=== PATIENT | male | born 1970 | race Caucasian/White ===

== ENCOUNTER 2017-03-11 18:28 | Inpatient (IN) | payer OTHER ==
[2017-03-11 20:30] VITALS: BMI 25.1
--- NOTE | 2017-03-11 23:44 | HP ---
CIWA Score - CIWA Score Nausea/Vomitin-Mild Nausea/No Vomiting Muscle Tremors: 4-Moderate,w/Arms Extend Anxiety: 4-Mod. Anxious/Guarded Agitation: 4-Moderately Restless Paroxysmal Sweats: 1-Minimal Palms Moist Orientation: 0-Oriented Tacttile Disturbances: 0-None Auditory Disturbances: 0-None Visual Disturbances: 0-None Headache: 1-Very Mild CIWA-Ar Total Score: 15 Admission ROS BHS - HPI Chief Complaint: WITHDRAWAL SX Allergies/Adverse Reactions: Allergies Allergy/AdvReac Type Severity Reaction Status Date / Time No Known Allergies Allergy Verified 03/11/17 21:38 History of Present Illness: 46 YEARS OLD MALE WITH LONG HISTORY OF ALCOHOL NICOTINE DEPENDENCE HAS BIPOLAR II IS ADMITTE TO DETOX Exam Limitations: No Limitations - Ebola screening Have you traveled outside of the country in the last 21 days: No Have you had contact with anyone from an Ebola affected area: No Have you been sick,other than usual withdrawal symptoms: No Do you have a fever: No - Review of Systems Constitutional: Chills, Weight Stable EENT: reports: Blurred Vision (CONTACT LENS) Respiratory: reports: No Symptoms reported Cardiac: reports: No Symptoms Reported GI: reports: Nausea, Abdominal cramping : reports: No Symptoms Reported Musculoskeletal: reports: Joint Pain (LEFT ANKLE) Integumentary: reports: No Symptoms Reported Neuro: reports: Seizure (2016 ALCOHOL WITHDRAWAL SX), Tremors Endocrine: reports: No Symptoms Reported Hematology: reports: No Symptoms Reported Psychiatric: reports: Judgement Intact, Orientated x3, Anxious, Depressed Other Systems: Reviewed and Negative Patient History - Patient Medical History Hx Anemia: No Hx Asthma: No Hx Chronic Obstructive Pulmonary Disease (COPD): No Hx Cancer: No Hx Cardiac Disorders: No Hx Congestive Heart Failure: No Hx Hypertension: No Hx Hypercholesterolemia: No Hx Pacemaker: No HX Cerebrovascular Accident: No Hx Seizures: Yes (ETOH R/T X 4 2015) Hx Dementia: No Hx Diabetes: No Hx Gastrointestinal Disorders: No Hx Liver Disease: No Hx Genitourinary Disorders: No Hx Sexually Transmitted Disorders: No Hx Renal Disease (ESRD): No Hx Thyroid Disease: No Hx Human Immunodeficiency Virus (HIV): No Hx Hepatitis C: No Hx Depression: No Hx Suicide Attempt: No Hx Bipolar Disorder: Yes Hx Schizophrenia: No - Patient Surgical History Past Surgical History: Yes Hx Neurologic Surgery: No Hx Cataract Extraction: No Hx Cardiac Surgery: No Hx Lung Surgery: No Hx Breast Surgery: No Hx Breast Biopsy: No Hx Abdominal Surgery: No Hx Appendectomy: No Hx Cholecystectomy: No Hx Genitourinary Surgery: No Hx Orthopedic Surgery: Yes (LT.ANKLE 2009) Anesthesia Reaction: No - PPD History Previous Implant?: No Documented Results: Negative w/o proof Implanted On Prior [facility] Admission?: No PPD to be Administered?: Yes - Smoking Cessation Smoking history: Current every day smoker Have you smoked in the past 12 months: Yes Aproximately how many cigarettes per day: 20 Cigars Per Day: 0 Hx Chewing Tobacco Use: No Initiated information on smoking cessation: Yes 'Breaking Loose' booklet given: 03/11/17 - Substance & Tx. History Hx Alcohol Use: Yes Hx Substance Use: Yes Substance Use Type: Alcohol, Cocaine Hx Substance Use Treatment: Yes (2013) - Substances Abused Alcohol Route: Oral Frequency: Daily Amount used: 1 CASE OF [id number] Age of first use: 13 Date of Last Use: 03/11/17 Cocaine Route: Smoking Frequency: Daily Amount used: $200 Age of first use: 17 Date of Last Use: 03/10/17 Alprazolam (Xanax) Route: Oral Frequency: 1-2 times per week Amount used: 8 MG PILLS /WEEK Age of first use: 36 Date of Last Use: 03/09/17 Family Disease History - Family Disease History Family History: Unremarkable Admission Physical Exam S - Vital Signs Vital Signs: Vital Signs - 24 hr 03/11/17 20:28 Temperature 97.7 F Pulse Rate 96 H Respiratory 18 Rate Blood Pressure 111/73 - Physical General Appearance: Yes: Nourished, Appropriately Dressed, Alcohol on Breath, Tremorous, Irritable, Sweating, Anxious HEENTM: Yes: Hearing grossly Normal, Normocephalic, Normal Voice Respiratory: Yes: Chest Non-Tender, No Respiratory Distress, No Accessory Muscle Use, Hyperresonant Neck: Yes: Supple, Trachea in good position Breast: Yes: Breasts Symetrical Cardiology: Yes: Regular Rhythm, S1, S2, Tachycardia Abdominal: Yes: Normal Bowel Sounds, Non Tender, Soft Genitourinary: Yes: Within Normal Limits Back: Yes: Normal Inspection Musculoskeletal: Yes: full range of Motion, Gait Steady, Muscle Pain (LEFT ANKLE ) Extremities: Yes: Non-Tender, Tremors, Swelling (LEFT ANKLE) Neurological: Yes: Fully Oriented, Alert, Motor Strength 5/5, Normal Response, Depressed Affect Integumentary: Yes: Warm Lymphatic: Yes: Within Normal Limits - Diagnostic (1) Alcohol dependence with uncomplicated withdrawal Current Visit: Yes Status: Acute (2) Nicotine dependence Current Visit: Yes Status: Acute Qualifiers: Nicotine product type: cigarettes Substance use status: in withdrawal Qualified Code(s): F17.213 - Nicotine dependence, cigarettes, with withdrawal (3) Right ankle swelling Current Visit: Yes Status: Acute Comment: WALKING X 3 DAYS + DRINKING ALCOHOL HEAVY ELEVATION OF THE LEFT LEG (4) Bipolar II disorder Current Visit: Yes Status: Suspected Cleared for Admission [facility] - Detox or Rehab [facility] Level of Care: Medically Managed Detox Regimen/Protocol: Librium [facility] Breath Alcohol Content Breath Alcohol Content: 0.048 Urine Drug Screen - Results Drug Screen Negative: No Urine Drug Screen Results: JOSE ALFREDO-Cocaine, BAR-Barbiturates, BZO-Benzodiazepines
[2017-03-11] MEDS ORDERED: ACETAMINOPHEN 325 MG TABLET (FP) PO PRN (23:50)
[2017-03-11] MEDS ORDERED: MAGNESIUM HYDROX 2400MG/30ML ORAL SUSPENSION 30 ML CUP PO PRN (23:50)
[2017-03-11] MEDS ORDERED: chlordiazePOXIDE HCL 25 MG CAPSULE PO PRN (23:50)
[2017-03-11] MEDS ORDERED: P-EPHED 60MG/TRIPROLIDI 2.5MG TABLET PO PRN (23:50)
[2017-03-11] MEDS ORDERED: NICOTINE POLACRILEX 4 MG GUM BC PRN (23:50)
[2017-03-11] MEDS ORDERED: MENTHOL/PHENOL 1 EACH UD MM PRN (23:50)
[2017-03-11] MEDS ORDERED: MAGNESIUM CITRATE 300 ML BOTTLE PO PRN (23:50)
[2017-03-11] MEDS ORDERED: IBUPROFEN 400 MG TABLET (FP) PO PRN (23:50)
[2017-03-11] MEDS ORDERED: guaiFENesin/D-METHORPHAN HB 10 ML UNIT-DOSE CUPS PO PRN (23:50)
[2017-03-11] MEDS ORDERED: MAG HYDROX/AL HYDROX/SIMETH 30 ML UNIT-DOSE CUP PO PRN (23:50)
[2017-03-11] MEDS ORDERED: LOPERAMIDE HCL 2 MG CAPSULE PO PRN (23:50)
[2017-03-12] MEDS: chlordiazePOXIDE HCL 25 MG CAPSULE PO SCH ×5 (01:49→22:07)
[2017-03-12 10:04] LABS: HEMATOCRIT 40.4 % (35.4-49); MCH 30.6 pg (25.7-33.7); MCHC 32.3 g/dl (32.0-35.9); MEAN CELL VOLUME 94.8 fl (80-96); MEAN PLT VOLUME 7.8 fl (7.5-11.1); PLATELET COUNT 312 K/MM3 (134-434); RBC 4.26 M/mm3 (4.00-5.60); RDW 14.7 % (11.9-15.9); WHITE BLOOD COUNT 9.2 K/mm3 (4.0-10.0)
[2017-03-12] MEDS: NICOTINE 21 MG/24 HOURS TOPICAL PATCH TD SCH (10:14)
[2017-03-12] MEDS: PRENATAL VITAMINS W/ FOLIC ACID TABLET (FP) PO SCH (10:14)
[2017-03-12 10:15] LABS: CHLORIDE 106 mmol/L (98-107); POTASSIUM 4.2 mmol/L (3.5-5.1); SODIUM 142 mmol/L (136-145)
[2017-03-12 10:33] LABS: ALBUMIN 3.2 g/dl (3.4-5.0); ALK PHOS 63 U/L (45-117); ANION GAP 7 (8-16); BILIRUBIN,TOTAL 0.7 mg/dL (0.2-1.0); BLOOD UREA NITROGEN 26 mg/dL (7-18); CALCIUM 8.5 mg/dL (8.5-10.1); CO2 29 mmol/L (21-32); CREATININE 1.1 mg/dL (0.7-1.3); GLUCOSE,RANDOM 72 mg/dL (74-106); SGOT/AST 20 U/L (15-37); SGPT/ALT 30 U/L (12-78); TOT PROT 6.3 g/dl (6.4-8.2)
--- NOTE | 2017-03-12 10:48 | CONSULT ---
[facility] Psychiatric Consult - Data Date of interview: 03/12/17 Admission source: [facility] Identifying data: First admission to [facility] for this 46 y/o male seeking detox treatment on for alcohol and cocaine dependence.Patient is single without children,domiciled,unemployed and supported on SSI benefits. Substance Abuse History: Confirmed by patient in this interview. See current [facility] report for details : Smoking history: Current every day smoker. Have you smoked in the past 12 months: Yes. Aproximately how many cigarettes per day: 20. Cigars Per Day: 0. Hx Chewing Tobacco Use: No. Initiated information on smoking cessation: Yes. 'Breaking Loose' booklet given: 03/11/17. - Substance & Tx. History. Hx Alcohol Use: Yes. Hx Substance Use: Yes. Substance Use Type : Alcohol, Cocaine. Hx Substance Use Treatment: Yes (2013). - Substances Abused. Alcohol. Route: Oral. Frequency: Daily. Amount used: 1 CASE OF [id number]. Age of first use: 13. Date of Last Use: 03/11/17. Cocaine. Route: Smoking. Frequency: Daily. Amount used: $200. Age of first use: 17. Date of Last Use: 03/10/17. Alprazolam (Xanax). Route: Oral. Frequency: 1- 2 times per week. Amount used: 8 MG PILLS /WEEK. Age of first use: 36. Date of Last Use: 03/09/17 Medical History: Patient endorses good general health.Noted history of orthosurgery (hardware in place in left ankle). Psychiatric History: Patient denies. Physical/Sexual Abuse/Trauma History: Patient denies. Additional Comment: Urine Drug Screen Results: JOSE ALFREDO-Cocaine, BAR-Barbiturates, BZO-Benzodiazepines.Noted. Mental Status Exam - Mental Status Exam Alert and Oriented to: Time, Place, Person Cognitive Function: Good Patient Appearance: Well Groomed Mood: Hopeful, Euthymic Affect: Appropriate, Normal Range Patient Behavior: Fatigued, Appropriate, Cooperative Speech Pattern: Clear Voice Loudness: Normal Thought Process: Intact, Goal Oriented Thought Disorder: Not Present Hallucinations: Denies Suicidal Ideation: Denies Homicidal Ideation: Denies Insight/Judgement: Poor Sleep: Poorly, Difficulty falling asleep Appetite: Good Muscle strength/Tone: Normal Gait/Station: Other (walks with a limp) Psychiatric Findings - Problem List ([place] 1, 2,3) (1) Alcohol dependence with uncomplicated withdrawal Current Visit: Yes Status: Acute (2) Cocaine dependence Current Visit: Yes Status: Chronic (3) Benzodiazepine abuse Current Visit: Yes Status: Acute (4) Nicotine dependence Current Visit: Yes Status: Chronic Qualifiers: Nicotine product type: cigarettes Substance use status: in withdrawal Qualified Code(s): F17.213 - Nicotine dependence, cigarettes, with withdrawal (5) Insomnia Current Visit: Yes Status: Acute - Initial Treatment Plan Initial Treatment Plan: Psychoeducation.Detoxification.Sleep hygiene.Ambien 10 mg po hs prn.Side effects/benefits discussed with the patient.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
[2017-03-12] MEDS ORDERED: FLU VACCINE QUAD 60 MCG/0.5 ML (MDV 17-18) IM ONE (12:00)
--- NOTE | 2017-03-12 12:02 | PN ---
[facility] CIWA - CIWA Score Nausea/Vomitin-Mild Nausea/No Vomiting Muscle Tremors: 3 Anxiety: 4-Mod. Anxious/Guarded Agitation: 4-Moderately Restless Paroxysmal Sweats: 3 Orientation: 0-Oriented Tacttile Disturbances: 1-Very Mild Itch/Numbness Auditory Disturbances: 0-None Visual Disturbances: 0-None Headache: 0-None Present CIWA-Ar Total Score: 16 BHS Progress Note (SOAP) Subjective: Nausea, sweating, interrupted sleep Objective: 03/12/17 12:00 Last Vital Signs Temp Pulse Resp BP Pulse Ox 97.1 F L 83 18 102/69 03/12/17 09:20 03/12/17 09:20 03/12/17 09:20 03/12/17 09:20 Laboratory Tests 03/12/17 03/12/17 03/12/17 07:00 07:00 07:00 WBC 9.2 RBC 4.26 Hgb 13.0 Hct 40.4 MCV 94.8 MCH 30.6 MCHC 32.3 RDW 14.7 Plt Count 312 MPV 7.8 Sodium 142 Potassium 4.2 Chloride 106 Carbon Dioxide 29 Anion Gap 7 L BUN 26 H Creatinine 1.1 Creat Clearance w eGFR > 60 Random Glucose 72 L Calcium 8.5 Total Bilirubin 0.7 AST 20 ALT 30 Alkaline Phosphatase 63 Total Protein 6.3 L Albumin 3.2 L RPR Titer Nonreactive Labs noted: bun 26 Assessment: 03/12/17 12:01 Withdrawal symptoms Noted with azotemia Plan: Continue detox Azotemia: encouraged to drink lots of water (at least 8 cups daily)
--- NOTE | 2017-03-12 13:57 | EKG ---
Test Reason : Blood Pressure : / mmHG Vent. Rate : 090 BPM Atrial Rate : 090 BPM P-R Int : 158 ms QRS Dur : 082 ms QT Int : 378 ms P-R-T Axes : 078 041 050 degrees QTc Int : 462 ms POOR DATA QUALITY, INTERPRETATION MAY BE ADVERSELY AFFECTED NORMAL SINUS RHYTHM EARLY REPOLARIZATION NO PREVIOUS ECGS AVAILABLE Confirmed by LAITH NAVA MD ([id number]) on 03/12/2017 1:57:03 PM Referred By: Confirmed By:LAITH NAVA MD
[2017-03-12] MEDS: THIAMINE HCL 100 MG TABLET (FP) PO SCH (22:07)
[2017-03-12] MEDS: ZOLPIDEM TARTRATE 10 MG TABLET (PARK CARE ONLY) PO PRN (22:07)
[2017-03-13 03:01] LABS: URINE APPEARANCE CLEAR; URINE BILIRUBIN NEGATIVE (NEGATIVE); URINE BLOOD NEGATIVE (NEGATIVE); URINE COLOR STRAW; URINE GLUCOSE (UA) NEGATIVE (NEGATIVE); URINE KETONE NEGATIVE (NEGATIVE); URINE LEUK ESTERASE NEGATIVE (NEGATIVE); URINE NITRITE NEGATIVE (NEGATIVE); URINE PROTEIN NEGATIVE (NEGATIVE); URINE UROBILINOGEN NEGATIVE mg/dL (0.2-1.0)
[2017-03-13] MEDS: chlordiazePOXIDE HCL 25 MG CAPSULE PO SCH ×3 (05:05→16:41)
[2017-03-13] MEDS: PRENATAL VITAMINS W/ FOLIC ACID TABLET (FP) PO SCH (10:04)
[2017-03-13] MEDS: NICOTINE 21 MG/24 HOURS TOPICAL PATCH TD SCH (10:04)
--- NOTE | 2017-03-13 13:52 | PN ---
[facility] CIWA - CIWA Score Nausea/Vomitin-No Nausea/No Vomiting Muscle Tremors: 4-Moderate,w/Arms Extend Anxiety: 3 Agitation: 2 Paroxysmal Sweats: No Perspiration Orientation: 0-Oriented Tacttile Disturbances: 3-Moderate Itch/Numb/Burn Auditory Disturbances: 2-Mild Harshness/Frighten Visual Disturbances: 0-None Headache: 3-Moderate CIWA-Ar Total Score: 17 S Progress Note (SOAP) Subjective: Interrupted Sleep, H/A, Stomach Cramping, Tremors. Objective: PT. A & O X 3, OBSERVED AMBULATING ON UNIT. NO ACUTE DISTRESS. 03/13/17 13:50 Vital Signs Temperature 97.9 F 03/13/17 13:14 Pulse Rate 80 03/13/17 13:14 Respiratory Rate 18 03/13/17 13:14 Blood Pressure 107/69 03/13/17 13:14 O2 Sat by Pulse Oximetry (%) Laboratory Tests 03/12/17 03/12/17 03/12/17 07:00 07:00 07:00 WBC 9.2 RBC 4.26 Hgb 13.0 Hct 40.4 MCV 94.8 MCH 30.6 MCHC 32.3 RDW 14.7 Plt Count 312 MPV 7.8 Sodium 142 Potassium 4.2 Chloride 106 Carbon Dioxide 29 Anion Gap 7 L BUN 26 H Creatinine 1.1 Creat Clearance w eGFR > 60 Random Glucose 72 L Calcium 8.5 Total Bilirubin 0.7 AST 20 ALT 30 Alkaline Phosphatase 63 Total Protein 6.3 L Albumin 3.2 L Urine Color Urine Appearance Urine pH Ur Specific [place] Urine Protein Urine Glucose (UA) Urine Ketones Urine Blood Urine Nitrite Urine Bilirubin Urine Urobilinogen Ur Leukocyte Esterase RPR Titer Nonreactive 03/12/17 20:45 WBC RBC Hgb Hct MCV MCH MCHC RDW Plt Count MPV Sodium Potassium Chloride Carbon Dioxide Anion Gap BUN Creatinine Creat Clearance w eGFR Random Glucose Calcium Total Bilirubin AST ALT Alkaline Phosphatase Total Protein Albumin Urine Color Straw Urine Appearance Clear Urine pH 8.0 Ur Specific [place] 1.012 Urine Protein Negative Urine Glucose (UA) Negative Urine Ketones Negative Urine Blood Negative Urine Nitrite Negative Urine Bilirubin Negative Urine Urobilinogen Negative Ur Leukocyte Esterase Negative RPR Titer LABS NOTED. Assessment: 03/13/17 13:50 WITHDRAWAL SYMPTOMS. Plan: CONTINUE DETOX. REPEAT BUN ON 03/14/2017 FOR ELEVATED ADMISSION LEVEL. INCREASE DAILY PO FLUID INTAKE.
[2017-03-13] MEDS: chlordiazePOXIDE 5 MG CAPSULE PO SCH (21:59)
[2017-03-13] MEDS: THIAMINE HCL 100 MG TABLET (FP) PO SCH (21:59)
[2017-03-13] MEDS: ZOLPIDEM TARTRATE 10 MG TABLET (PARK CARE ONLY) PO PRN (21:59)
[2017-03-14] MEDS: chlordiazePOXIDE 5 MG CAPSULE PO SCH ×3 (05:19→16:36)
[2017-03-14] MEDS: NICOTINE 21 MG/24 HOURS TOPICAL PATCH TD SCH (10:05)
[2017-03-14] MEDS: PRENATAL VITAMINS W/ FOLIC ACID TABLET (FP) PO SCH (10:05)
--- NOTE | 2017-03-14 12:10 | PN ---
BHS Progress Note (SOAP) Subjective: Tremor, feeling depressed and reports h/o bipolar and wants to speak with a psychiatrist, chills, interrupted sleep Objective: 03/14/17 12:07 Last Vital Signs Temp Pulse Resp BP Pulse Ox 97.5 F L 88 20 108/66 03/14/17 09:32 03/14/17 09:32 03/14/17 09:32 03/14/17 09:32 Laboratory Tests 03/12/17 03/12/17 03/12/17 07:00 07:00 07:00 WBC 9.2 RBC 4.26 Hgb 13.0 Hct 40.4 MCV 94.8 MCH 30.6 MCHC 32.3 RDW 14.7 Plt Count 312 MPV 7.8 Sodium 142 Potassium 4.2 Chloride 106 Carbon Dioxide 29 Anion Gap 7 L BUN 26 H Creatinine 1.1 Creat Clearance w eGFR > 60 Random Glucose 72 L Calcium 8.5 Total Bilirubin 0.7 AST 20 ALT 30 Alkaline Phosphatase 63 Total Protein 6.3 L Albumin 3.2 L Urine Color Urine Appearance Urine pH Ur Specific [place] Urine Protein Urine Glucose (UA) Urine Ketones Urine Blood Urine Nitrite Urine Bilirubin Urine Urobilinogen Ur Leukocyte Esterase RPR Titer Nonreactive 03/12/17 03/14/17 20:45 07:40 WBC RBC Hgb Hct MCV MCH MCHC RDW Plt Count MPV Sodium Potassium Chloride Carbon Dioxide Anion Gap BUN 16 D Creatinine Creat Clearance w eGFR Random Glucose Calcium Total Bilirubin AST ALT Alkaline Phosphatase Total Protein Albumin Urine Color Straw Urine Appearance Clear Urine pH 8.0 Ur Specific [place] 1.012 Urine Protein Negative Urine Glucose (UA) Negative Urine Ketones Negative Urine Blood Negative Urine Nitrite Negative Urine Bilirubin Negative Urine Urobilinogen Negative Ur Leukocyte Esterase Negative RPR Titer Labs noted: bun 26 Assessment: 03/14/17 12:09 Withdrawal symptoms Noted with azotemia Plan: Continue detox C/O feeling depressed, h/o bipolar disorder: psychiatry consult Azotemia: encouraged to drink lots of water
[2017-03-14] MEDS: ZOLPIDEM TARTRATE 10 MG TABLET (PARK CARE ONLY) PO PRN (22:00)
[2017-03-14] MEDS: THIAMINE HCL 100 MG TABLET (FP) PO SCH (22:00)
[2017-03-14] MEDS: chlordiazePOXIDE HCL 10 MG CAPSULE PO SCH (22:00)
[2017-03-15] MEDS: chlordiazePOXIDE HCL 10 MG CAPSULE PO SCH ×3 (05:03→17:35)
[2017-03-15] MEDS: PRENATAL VITAMINS W/ FOLIC ACID TABLET (FP) PO SCH (10:09)
[2017-03-15] MEDS: NICOTINE 21 MG/24 HOURS TOPICAL PATCH TD SCH (10:09)
--- NOTE | 2017-03-15 11:48 | PN ---
S Progress Note (SOAP) Subjective: Stomach ache, sweating; patient is for discharge home tomorrow and is requesting inpatient rehab here at [facility] Objective: 03/15/17 11:46 Last Vital Signs Temp Pulse Resp BP Pulse Ox 96 F L 90 20 113/74 03/15/17 09:10 03/15/17 09:10 03/15/17 09:10 03/15/17 09:10 Laboratory Tests 03/12/17 03/12/17 03/12/17 07:00 07:00 07:00 WBC 9.2 RBC 4.26 Hgb 13.0 Hct 40.4 MCV 94.8 MCH 30.6 MCHC 32.3 RDW 14.7 Plt Count 312 MPV 7.8 Sodium 142 Potassium 4.2 Chloride 106 Carbon Dioxide 29 Anion Gap 7 L BUN 26 H Creatinine 1.1 Creat Clearance w eGFR > 60 Random Glucose 72 L Calcium 8.5 Total Bilirubin 0.7 AST 20 ALT 30 Alkaline Phosphatase 63 Total Protein 6.3 L Albumin 3.2 L Urine Color Urine Appearance Urine pH Ur Specific [place] Urine Protein Urine Glucose (UA) Urine Ketones Urine Blood Urine Nitrite Urine Bilirubin Urine Urobilinogen Ur Leukocyte Esterase RPR Titer Nonreactive 03/12/17 03/14/17 20:45 07:40 WBC RBC Hgb Hct MCV MCH MCHC RDW Plt Count MPV Sodium Potassium Chloride Carbon Dioxide Anion Gap BUN 16 D Creatinine Creat Clearance w eGFR Random Glucose Calcium Total Bilirubin AST ALT Alkaline Phosphatase Total Protein Albumin Urine Color Straw Urine Appearance Clear Urine pH 8.0 Ur Specific [place] 1.012 Urine Protein Negative Urine Glucose (UA) Negative Urine Ketones Negative Urine Blood Negative Urine Nitrite Negative Urine Bilirubin Negative Urine Urobilinogen Negative Ur Leukocyte Esterase Negative RPR Titer Labs noted Assessment: 03/15/17 11:47 Withdrawal symptoms Plan: Continue detox
[2017-03-15] MEDS: ZOLPIDEM TARTRATE 10 MG TABLET (PARK CARE ONLY) PO PRN (21:43)
[2017-03-15] MEDS: THIAMINE HCL 100 MG TABLET (FP) PO SCH (21:43)
[2017-03-16 06:21] VITALS: BP 100/67; PULSE 73; TEMP 97.7
--- NOTE | 2017-03-25 16:09 | DS ---
[facility] Detox Discharge Summary Admission Date: 03/11/17 Discharge Date: 04/16/17 - History Present History: Alcohol Dependence, Cocaine Dependence Additional Comments: dehydrated on admission, malnutirtion noted Pertinent Past History: anxiety, depression, insomnia, nicotine dependence, benzodiazepin abuse - Physical Exam Results Vital Signs: Vital Signs Temperature 97.7 F 03/16/17 06:21 Pulse Rate 73 03/16/17 06:21 Respiratory Rate 18 03/16/17 06:21 Blood Pressure 100/67 03/16/17 06:21 O2 Sat by Pulse Oximetry (%) Laboratory Tests 03/12/17 03/12/17 03/12/17 07:00 07:00 07:00 WBC 9.2 RBC 4.26 Hgb 13.0 Hct 40.4 MCV 94.8 MCH 30.6 MCHC 32.3 RDW 14.7 Plt Count 312 MPV 7.8 Sodium 142 Potassium 4.2 Chloride 106 Carbon Dioxide 29 Anion Gap 7 L BUN 26 H Creatinine 1.1 Creat Clearance w eGFR > 60 Random Glucose 72 L Calcium 8.5 Total Bilirubin 0.7 AST 20 ALT 30 Alkaline Phosphatase 63 Total Protein 6.3 L Albumin 3.2 L Urine Color Urine Appearance Urine pH Ur Specific [place] Urine Protein Urine Glucose (UA) Urine Ketones Urine Blood Urine Nitrite Urine Bilirubin Urine Urobilinogen Ur Leukocyte Esterase RPR Titer Nonreactive 03/12/17 03/14/17 20:45 07:40 WBC RBC Hgb Hct MCV MCH MCHC RDW Plt Count MPV Sodium Potassium Chloride Carbon Dioxide Anion Gap BUN 16 D Creatinine Creat Clearance w eGFR Random Glucose Calcium Total Bilirubin AST ALT Alkaline Phosphatase Total Protein Albumin Urine Color Straw Urine Appearance Clear Urine pH 8.0 Ur Specific [place] 1.012 Urine Protein Negative Urine Glucose (UA) Negative Urine Ketones Negative Urine Blood Negative Urine Nitrite Negative Urine Bilirubin Negative Urine Urobilinogen Negative Ur Leukocyte Esterase Negative RPR Titer dehydration and hypoalbuminemia on admission Pertinent Admission Physical Exam Findings: withdrawal sx - Treatment Hospital Course: Detox Protocol Followed, Detoxed Safely, Responded well, Discharged Condition Good, Rehab Referral Accepted Patient has Accepted a Rehab Referral to: Yes - Medication Discharge Medications: Ambulatory Orders NK [No Known Home Medication] 03/11/17 - Diagnosis (1) Alcohol dependence with uncomplicated withdrawal Status: Acute (2) Benzodiazepine abuse Status: Acute (3) Bipolar II disorder Status: Chronic (4) Cocaine dependence Status: Chronic (5) Nicotine dependence Status: Chronic Qualifiers: Nicotine product type: cigarettes Substance use status: in withdrawal Qualified Code(s): F17.213 - Nicotine dependence, cigarettes, with withdrawal
== END 2017-03-16 09:38 | disposition home or self-care (01) | DRG 897 ==
LOC: YASAS 18:28 → Y3N 21:54
PROVIDERS: ADMIT Internal Medicine; ATTEND Internal Medicine
PROC: HZ2ZZZZ Detoxification Services for Substance Abuse Treatment (ICD-10-PCS; principal; 2017-03-11)
DX: F10.230 Alcohol dependence with withdrawal, uncomplicated (principal); F14.20 Cocaine dependence, uncomplicated; F31.81 Bipolar II disorder; G40.509 Epileptic seizures related to external causes, not intractable, without status epilepticus; F13.10 Sedative, hypnotic or anxiolytic abuse, uncomplicated; G47.00 Insomnia, unspecified; M25.471 Effusion, right ankle
CPT/HCPCS: 36415; 80053; 81003; 84520; 85027; 86593; 90688; 93005; 93010; G0008

== ENCOUNTER 2017-12-08 12:54 | Inpatient (IN) | payer OTHER ==
[2017-12-08 14:30] VITALS: BMI 23.7
--- NOTE | 2017-12-08 15:29 | HP ---
CIWA Score - CIWA Score Nausea/Vomitin Muscle Tremors: 2 Anxiety: 2 Agitation: 2 Paroxysmal Sweats: 3 Orientation: 0-Oriented Tacttile Disturbances: 2-Mild Itch/Numbness/Burn Auditory Disturbances: 0-None Visual Disturbances: 0-None Headache: 0-None Present CIWA-Ar Total Score: 14 Admission ROS BHS - HPI Chief Complaint: I need help to stop using drugs and alcohol. Allergies/Adverse Reactions: Allergies Allergy/AdvReac Type Severity Reaction Status Date / Time No Known Allergies Allergy Verified 12/08/17 15:09 History of Present Illness: 47 y/o m pt with a 24 yr h/o alcohol and cocaine dep. seeking detox. Exam Limitations: No Limitations - Ebola screening Have you traveled outside of the country in the last 21 days: No Have you had contact with anyone from an Ebola affected area: No Have you been sick,other than usual withdrawal symptoms: No Do you have a fever: No - Review of Systems Constitutional: Chills, Malaise, Night Sweats EENT: reports: Other (wears contact lenses) Respiratory: reports: Shortness of Breath Cardiac: reports: No Symptoms Reported GI: reports: Indigestion : reports: Frequency Musculoskeletal: reports: Muscle Pain Integumentary: reports: Sweating Neuro: reports: Headache, Tremors Hematology: reports: No Symptoms Reported Psychiatric: reports: Anxious, Depressed Other Systems: Reviewed and Negative Patient History - Patient Medical History Hx Anemia: No Hx Asthma: No Hx Chronic Obstructive Pulmonary Disease (COPD): No Hx Cancer: No Hx Cardiac Disorders: No Hx Congestive Heart Failure: No Hx Hypertension: No Hx Hypercholesterolemia: No Hx Pacemaker: No HX Cerebrovascular Accident: No Hx Seizures: Yes (ETOH R/T X 4 2015) Hx Dementia: No Hx Diabetes: No Hx Gastrointestinal Disorders: No Hx Liver Disease: No Hx Genitourinary Disorders: No Hx Sexually Transmitted Disorders: No Hx Renal Disease (ESRD): No Hx Thyroid Disease: No Hx Human Immunodeficiency Virus (HIV): No Hx Hepatitis C: No Hx Depression: No Hx Suicide Attempt: No Hx Bipolar Disorder: Yes Hx Schizophrenia: No - Patient Surgical History Past Surgical History: Yes Hx Neurologic Surgery: No Hx Cataract Extraction: No Hx Cardiac Surgery: No Hx Lung Surgery: No Hx Breast Surgery: No Hx Breast Biopsy: No Hx Abdominal Surgery: No Hx Appendectomy: No Hx Cholecystectomy: No Hx Genitourinary Surgery: No Hx Section: No Hx Orthopedic Surgery: Yes (LT.ANKLE 2009) Anesthesia Reaction: No - PPD History Previous Implant?: Yes Date: 03/14/17 PPD to be Administered?: No - Reproductive History Patient is a Female of Child Bearing Age (11 -55 yrs old): No - Smoking Cessation Smoking history: Current every day smoker Have you smoked in the past 12 months: Yes Aproximately how many cigarettes per day: 20 Cigars Per Day: 0 Hx Chewing Tobacco Use: No Initiated information on smoking cessation: Yes 'Breaking Loose' booklet given: 12/08/17 - Substance & Tx. History Hx Alcohol Use: Yes Hx Substance Use: Yes Substance Use Type: Alcohol, Cocaine Hx Substance Use Treatment: Yes - Substances Abused alcohol Route: Oral Frequency: Daily Age of first use: 14 Date of Last Use: 12/08/17 Cocaine Route: Smoking Frequency: Daily Amount used: 2 gms/d Age of first use: 17 Date of Last Use: 12/07/17 Family Disease History - Family Disease History Family History: Denies Admission Physical Exam [facility] - Vital Signs Vital Signs: Vital Signs - 24 hr 12/08/17 14:27 Temperature 97.4 F L Pulse Rate 85 Respiratory 18 Rate Blood Pressure 136/80 47 y/o m pt wn/wd in nad ambulating and cooperative with exam. - Physical General Appearance: Yes: Disheveled, Tremorous, Sweating HEENTM: Yes: EOMI, Hearing grossly Normal, Normocephalic, Normal Voice, REYNA, Muffled/Hoarse Voice Respiratory: Yes: Within Normal Limits, Chest Non-Tender, Lungs Clear, Normal Breath Sounds, No Respiratory Distress Neck: Yes: Supple, Trachea in good position Breast: Yes: Within Normal Limits Cardiology: Yes: Regular Rhythm, Regular Rate, S1, S2 Abdominal: Yes: Normal Bowel Sounds, Flat, Soft, Increased Bowel Sounds Genitourinary: Yes: Frequency Back: Yes: Decreased Range of Motion Musculoskeletal: Yes: Back pain, Muscle Pain Extremities: Yes: Tremors (mild) Neurological: Yes: bending frame operator II-XII NML intact, Fully Oriented, Alert, Motor Strength 5/5 Integumentary: Yes: Moist Lymphatic: Yes: Within Normal Limits - Diagnostic (1) Alcohol dependence with uncomplicated withdrawal Current Visit: Yes Status: Chronic (2) Bipolar II disorder Current Visit: Yes Status: Chronic (3) Cocaine dependence Current Visit: No Status: Chronic (4) Nicotine dependence Current Visit: Yes Status: Chronic Qualifiers: Nicotine product type: cigarettes Substance use status: in withdrawal Qualified Code(s): F17.213 - Nicotine dependence, cigarettes, with withdrawal Cleared for Admission [facility] - Detox or Rehab [facility] Level of Care: Medically Managed Detox Regimen/Protocol: Librium S Breath Alcohol Content Breath Alcohol Content: 0 Urine Drug Screen - Results Drug Screen Negative: No Urine Drug Screen Results: JOSE ALFREDO-Cocaine, AMP-Amphetamines, MET-Methamphetamine, BAR-Barbiturates
[2017-12-08] MEDS ORDERED: guaiFENesin/D-METHORPHAN HB 10 ML UNIT-DOSE CUPS PO PRN (15:39)
[2017-12-08] MEDS ORDERED: MENTHOL/PHENOL 1 EACH UD MM PRN (15:39)
[2017-12-08] MEDS ORDERED: hydrOXYzine PAMOATE 25 MG CAPSULE (FP) PO PRN (15:39)
[2017-12-08] MEDS ORDERED: MAGNESIUM HYDROX 2400MG/30ML ORAL SUSPENSION 30 ML CUP PO PRN (15:39)
[2017-12-08] MEDS ORDERED: chlordiazePOXIDE HCL 25 MG CAPSULE PO PRN (15:39)
[2017-12-08] MEDS ORDERED: MAGNESIUM CITRATE 300 ML BOTTLE PO PRN (15:39)
[2017-12-08] MEDS ORDERED: NICOTINE POLACRILEX 4 MG GUM BC PRN (15:39)
[2017-12-08] MEDS ORDERED: P-EPHED 60MG/TRIPROLIDI 2.5MG TABLET PO PRN (15:39)
[2017-12-08] MEDS ORDERED: IBUPROFEN 400 MG TABLET (FP) PO PRN (15:39)
[2017-12-08] MEDS ORDERED: LOPERAMIDE HCL 2 MG CAPSULE PO PRN (15:39)
[2017-12-08] MEDS: chlordiazePOXIDE HCL 25 MG CAPSULE PO SCH ×2 (18:26→22:32)
--- NOTE | 2017-12-08 18:46 | CONSULT ---
[facility] Psychiatric Consult - Data Date of interview: 12/08/17 Admission source: [facility] Identifying data: Readmission to [facility] for this 47 y/o male self- referred for detoxification treatment (alcohol + cocaine dependence).Admitted to [address] [place] [address].Patient is single without children,domiciled,unemployed and supported on SSI benefits. Substance Abuse History: Confirmed by the patient in this interview,Details in current [facility] report : Smoking history: Current every day smoker. Have you smoked in the past 12 months: Yes. Aproximately how many cigarettes per day: 20. Cigars Per Day: 0. Hx Chewing Tobacco Use: No. Initiated information on smoking cessation: Yes. 'Breaking Loose' booklet given: 12/08/17. - Substance & Tx. History. Hx Alcohol Use: Yes. Hx Substance Use: Yes. Substance Use Type : Alcohol, Cocaine. Hx Substance Use Treatment: Yes. - Substances Abused. alcohol. Route: Oral. Frequency: Daily. Age of first use: 14. Date of Last Use: 12/08/17. Cocaine. Route: Smoking. Frequency: Daily. Amount used: 2 gms/d. Age of first use: 17. Date of Last Use: 12/07/17 Medical History: Distant history of orthosurgery in 2009 (hardware in place in left ankle).Patient endorses good general health. Psychiatric History: Patient reports a brief psychiatric hospitalization, nine months ago, at a facility in [place].Circumstances of admission are reported to correlate with a state of intoxication with alcohol.Retained for three days, diagnosed with " Bipolar Disorder and Anxiety Disorder " and discharged on a regimen of cymbalta + buspirone.Mr Epperson declares that he dropped out treatment a month after his discharge.Last took these medications eight months ago and " not intereseted " to resume psychotropic medications.Patient denies history of suicide attempts. Physical/Sexual Abuse/Trauma History: Patient denies. Additional Comment: Urine Drug Screen Results: JOSE ALFREDO-Cocaine, AMP-Amphetamines, MET-Methamphetamine, BAR-Barbiturates.Noted. Mental Status Exam - Mental Status Exam Alert and Oriented to: Time, Place, Person Cognitive Function: Good Mood: Hopeful, Euthymic Affect: Appropriate, Normal Range Patient Behavior: Fatigued, Appropriate, Cooperative Speech Pattern: Clear Voice Loudness: Normal Thought Process: Intact, Goal Oriented Thought Disorder: Not Present Hallucinations: Denies Suicidal Ideation: Denies Homicidal Ideation: Denies Insight/Judgement: Poor Sleep: Fair Appetite: Good Muscle strength/Tone: Normal Gait/Station: Normal Psychiatric Findings - Problem List ([place] 1, 2,3) (1) Alcohol dependence with uncomplicated withdrawal Current Visit: Yes Status: Acute (2) Cocaine dependence Current Visit: Yes Status: Acute Qualifiers: Substance use status: uncomplicated Qualified Code(s): F14.20 - Cocaine dependence, uncomplicated (3) Nicotine dependence Current Visit: Yes Status: Acute Qualifiers: Nicotine product type: cigarettes Substance use status: in withdrawal Qualified Code(s): F17.213 - Nicotine dependence, cigarettes, with withdrawal (4) Insomnia Current Visit: Yes Status: Chronic Comment: Mild insomnia.Addressed with sleep hygiene and melatonin at bedtime. - Initial Treatment Plan Initial Treatment Plan: Psychoeducation and support.Detoxification in progress.Sleep hygiene.melatonin 5 mg po hs prn for insomnia.Side effects/ benefits revisited.Patient agrees to this careplan.Observation.
[2017-12-08] MEDS: MELATONIN 5 MG TABLETS PO PRN (22:32)
[2017-12-08] MEDS: THIAMINE HCL 100 MG TABLET (FP) PO SCH (22:32)
[2017-12-08 23:25] LABS: URINE APPEARANCE TURBID; URINE BILIRUBIN NEGATIVE (<2.0 mg/dL); URINE COLOR AMBER; URINE GLUCOSE (UA) NEGATIVE (NEGATIVE); URINE KETONE TRACE (NEGATIVE); URINE LEUK ESTERASE NEGATIVE (NEGATIVE); URINE NITRITE NEGATIVE (NEGATIVE); URINE UROBILINOGEN NEGATIVE mg/dL (0.2-1.0)
[2017-12-08 23:27] LABS: URINE PROTEIN 1+ (NEGATIVE)
[2017-12-08 23:29] LABS: EPI CELLS RARE /HPF (FEW); URINE MUCUS MANY
[2017-12-09] MEDS: chlordiazePOXIDE HCL 25 MG CAPSULE PO SCH ×4 (06:45→22:21)
--- NOTE | 2017-12-09 10:00 | EKG ---
Test Reason : Blood Pressure : / mmHG Vent. Rate : 074 BPM Atrial Rate : 074 BPM P-R Int : 130 ms QRS Dur : 078 ms QT Int : 402 ms P-R-T Axes : 023 042 049 degrees QTc Int : 446 ms POOR DATA QUALITY, INTERPRETATION MAY BE ADVERSELY AFFECTED NORMAL SINUS RHYTHM LOW VOLTAGE QRS BORDERLINE ECG WHEN COMPARED WITH ECG OF 12-MAR-2017 02:56, NO SIGNIFICANT CHANGE WAS FOUND Confirmed by GWENDOLYN LOPES, MITALI ([id number]) on 12/09/2017 9:59:37 AM Referred By: Confirmed By:MITALI SNOW MD
[2017-12-09] MEDS: NICOTINE 21 MG/24 HOURS TOPICAL PATCH TD SCH (10:17)
[2017-12-09] MEDS: PRENATAL VITAMINS W/ FOLIC ACID TABLET (FP) PO SCH (10:17)
[2017-12-09 10:25] LABS: HEMATOCRIT 41.3 % (35.4-49); HEMOGLOBIN 13.8 GM/dL (11.7-16.9); MCH 30.9 pg (25.7-33.7); MCHC 33.4 g/dl (32.0-35.9); MEAN CELL VOLUME 92.6 fl (80-96); MEAN PLT VOLUME 7.6 fl (7.5-11.1); PLATELET COUNT 312 K/MM3 (134-434); RBC 4.46 M/mm3 (4.00-5.60); RDW 13.6 % (11.9-15.9); WHITE BLOOD COUNT 9.3 K/mm3 (4.0-10.0)
--- NOTE | 2017-12-09 10:29 | PN ---
[facility] CIWA - CIWA Score Nausea/Vomitin-No Nausea/No Vomiting Muscle Tremors: 3 Anxiety: 4-Mod. Anxious/Guarded Agitation: 3 Paroxysmal Sweats: 1-Minimal Palms Moist Orientation: 0-Oriented Tacttile Disturbances: 0-None Auditory Disturbances: 0-None Visual Disturbances: 0-None Headache: 0-None Present CIWA-Ar Total Score: 11 BHS Progress Note (SOAP) Subjective: ANXIETY, FATIGUE,INTERMITTENT SLEEP. Objective: 12/09/17 10:28 Vital Signs 12/09/17 12/09/17 12/09/17 03:30 06:15 06:30 Temperature 96.5 F L Pulse Rate 68 Respiratory 18 18 18 Rate Blood Pressure 107/67 12/09/17 10:02 Temperature 98.4 F Pulse Rate 70 Respiratory 18 Rate Blood Pressure 99/50 Laboratory Tests 12/08/17 23:10 Urine Color Rosey Urine Appearance Turbid Urine pH 5.0 D Ur Specific [place] 1.028 Urine Protein 1+ H Urine Glucose (UA) Negative Urine Ketones Trace H Urine Blood Negative Urine Nitrite Negative Urine Bilirubin Negative Urine Urobilinogen Negative Ur Leukocyte Esterase Negative Urine WBC (Auto) 4 Urine RBC (Auto) 1 Ur Epithelial Cells Rare Urine Mucus Many Assessment: 12/09/17 10:28 WITHDRAWAL SX Plan: CONTINUE DETOX INCREASE PO FLUIDS
[2017-12-09] MEDS ORDERED: FLU VACCINE QUAD 60 MCG/0.5 ML (MDV 18-19) IM ONE (12:00)
[2017-12-09 12:34] LABS: ALBUMIN 2.9 g/dl (3.4-5.0); ALK PHOS 66 U/L (45-117); ANION GAP 5 MMOL/L (8-16); BILIRUBIN,TOTAL 0.3 mg/dL (0.2-1); BLOOD UREA NITROGEN 15 mg/dL (7-18); CALCIUM 8.4 mg/dL (8.5-10.1); CHLORIDE 109 mmol/L (98-107); CO2 29 mmol/L (21-32); CREATININE 0.9 mg/dL (0.55-1.3); GLUCOSE,RANDOM 87 mg/dL (74-106); POTASSIUM 4.4 mmol/L (3.5-5.1); SGOT/AST 14 U/L (15-37); SGPT/ALT 16 U/L (13-61); SODIUM 143 mmol/L (136-145); TOT PROT 5.8 g/dl (6.4-8.2)
[2017-12-09] MEDS: THIAMINE HCL 100 MG TABLET (FP) PO SCH (22:21)
[2017-12-09] MEDS: MAG HYDROX/AL HYDROX/SIMETH 30 ML UNIT-DOSE CUP PO PRN (22:21)
[2017-12-09] MEDS: MELATONIN 5 MG TABLETS PO PRN (22:21)
[2017-12-09] MEDS: ACETAMINOPHEN 325 MG TABLET (FP) PO PRN (23:08)
[2017-12-10] MEDS: chlordiazePOXIDE HCL 25 MG CAPSULE PO SCH ×2 (06:27→10:17)
[2017-12-10] MEDS: NICOTINE 21 MG/24 HOURS TOPICAL PATCH TD SCH (10:17)
[2017-12-10] MEDS: PRENATAL VITAMINS W/ FOLIC ACID TABLET (FP) PO SCH (10:17)
--- NOTE | 2017-12-10 14:15 | PN ---
S CIWA - CIWA Score Nausea/Vomitin-No Nausea/No Vomiting Muscle Tremors: 4-Moderate,w/Arms Extend Anxiety: 3 Agitation: 3 Paroxysmal Sweats: No Perspiration Orientation: 0-Oriented Tacttile Disturbances: 0-None Auditory Disturbances: 0-None Visual Disturbances: 0-None Headache: 0-None Present CIWA-Ar Total Score: 10 BHS Progress Note (SOAP) Subjective: ANXIETY, TREMORS, FATIGUE. Objective: 12/10/17 14:15 Vital Signs 12/10/17 12/10/17 06:22 10:26 Temperature 96.9 F L 97.6 F Pulse Rate 66 97 H Respiratory 18 18 Rate Blood Pressure 103/66 115/82 Laboratory Tests 12/08/17 12/09/17 12/09/17 23:10 07:00 07:00 WBC 9.3 RBC 4.46 Hgb 13.8 Hct 41.3 MCV 92.6 MCH 30.9 MCHC 33.4 RDW 13.6 Plt Count 312 MPV 7.6 Sodium 143 Potassium 4.4 Chloride 109 H Carbon Dioxide 29 Anion Gap 5 L BUN 15 Creatinine 0.9 Creat Clearance w eGFR > 60 Random Glucose 87 Calcium 8.4 L Total Bilirubin 0.3 AST 14 L ALT 16 Alkaline Phosphatase 66 Total Protein 5.8 L Albumin 2.9 L Urine Color Rosey Urine Appearance Turbid Urine pH 5.0 D Ur Specific [place] 1.028 Urine Protein 1+ H Urine Glucose (UA) Negative Urine Ketones Trace H Urine Blood Negative Urine Nitrite Negative Urine Bilirubin Negative Urine Urobilinogen Negative Ur Leukocyte Esterase Negative Urine WBC (Auto) 4 Urine RBC (Auto) 1 Ur Epithelial Cells Rare Urine Mucus Many RPR Titer 12/09/17 07:00 WBC RBC Hgb Hct MCV MCH MCHC RDW Plt Count MPV Sodium Potassium Chloride Carbon Dioxide Anion Gap BUN Creatinine Creat Clearance w eGFR Random Glucose Calcium Total Bilirubin AST ALT Alkaline Phosphatase Total Protein Albumin Urine Color Urine Appearance Urine pH Ur Specific [place] Urine Protein Urine Glucose (UA) Urine Ketones Urine Blood Urine Nitrite Urine Bilirubin Urine Urobilinogen Ur Leukocyte Esterase Urine WBC (Auto) Urine RBC (Auto) Ur Epithelial Cells Urine Mucus RPR Titer Nonreactive Assessment: 12/10/17 14:16 WITHDRAWAL SX Plan: CONTINUE DETOX
[2017-12-10] MEDS: chlordiazePOXIDE 5 MG CAPSULE PO SCH ×2 (16:44→22:18)
[2017-12-10] MEDS: THIAMINE HCL 100 MG TABLET (FP) PO SCH (22:18)
[2017-12-10] MEDS: MELATONIN 5 MG TABLETS PO PRN (22:18)
[2017-12-10] MEDS: MAG HYDROX/AL HYDROX/SIMETH 30 ML UNIT-DOSE CUP PO PRN (22:21)
[2017-12-11] MEDS: chlordiazePOXIDE 5 MG CAPSULE PO SCH ×2 (06:11→10:24)
[2017-12-11] MEDS: PRENATAL VITAMINS W/ FOLIC ACID TABLET (FP) PO SCH (10:24)
[2017-12-11] MEDS: NICOTINE 21 MG/24 HOURS TOPICAL PATCH TD SCH (10:24)
--- NOTE | 2017-12-11 11:10 | PN ---
BHS Progress Note (SOAP) Subjective: DECREASED ANXIETY, IRRITABILITY. DETOX TAPER PROCEEDING WELL. Objective: 12/11/17 11:09 Vital Signs 12/11/17 12/11/17 12/11/17 03:30 07:17 09:15 Temperature 96.8 F L 96.8 F L Pulse Rate 73 97 H Respiratory 18 18 18 Rate Blood Pressure 101/63 99/67 Laboratory Tests 12/08/17 12/09/17 12/09/17 23:10 07:00 07:00 WBC 9.3 RBC 4.46 Hgb 13.8 Hct 41.3 MCV 92.6 MCH 30.9 MCHC 33.4 RDW 13.6 Plt Count 312 MPV 7.6 Sodium 143 Potassium 4.4 Chloride 109 H Carbon Dioxide 29 Anion Gap 5 L BUN 15 Creatinine 0.9 Creat Clearance w eGFR > 60 Random Glucose 87 Calcium 8.4 L Total Bilirubin 0.3 AST 14 L ALT 16 Alkaline Phosphatase 66 Total Protein 5.8 L Albumin 2.9 L Urine Color Rosey Urine Appearance Turbid Urine pH 5.0 D Ur Specific [place] 1.028 Urine Protein 1+ H Urine Glucose (UA) Negative Urine Ketones Trace H Urine Blood Negative Urine Nitrite Negative Urine Bilirubin Negative Urine Urobilinogen Negative Ur Leukocyte Esterase Negative Urine WBC (Auto) 4 Urine RBC (Auto) 1 Ur Epithelial Cells Rare Urine Mucus Many RPR Titer 12/09/17 07:00 WBC RBC Hgb Hct MCV MCH MCHC RDW Plt Count MPV Sodium Potassium Chloride Carbon Dioxide Anion Gap BUN Creatinine Creat Clearance w eGFR Random Glucose Calcium Total Bilirubin AST ALT Alkaline Phosphatase Total Protein Albumin Urine Color Urine Appearance Urine pH Ur Specific [place] Urine Protein Urine Glucose (UA) Urine Ketones Urine Blood Urine Nitrite Urine Bilirubin Urine Urobilinogen Ur Leukocyte Esterase Urine WBC (Auto) Urine RBC (Auto) Ur Epithelial Cells Urine Mucus RPR Titer Nonreactive Assessment: 12/11/17 11:10 WITHDRAWAL SX Plan: CONTINUE DETOX
[2017-12-11] MEDS: chlordiazePOXIDE HCL 10 MG CAPSULE PO SCH ×2 (17:44→23:56)
[2017-12-11] MEDS: THIAMINE HCL 100 MG TABLET (FP) PO SCH (22:00)
[2017-12-11] MEDS: MELATONIN 5 MG TABLETS PO PRN (22:00)
[2017-12-12] MEDS: ACETAMINOPHEN 325 MG TABLET (FP) PO PRN (03:24)
[2017-12-12 06:27] VITALS: BP 101/61; PULSE 71; TEMP 97.3
[2017-12-12] MEDS: chlordiazePOXIDE HCL 10 MG CAPSULE PO SCH (06:35)
[2017-12-12] MEDS: NICOTINE 21 MG/24 HOURS TOPICAL PATCH TD SCH (09:40)
[2017-12-12] MEDS: PRENATAL VITAMINS W/ FOLIC ACID TABLET (FP) PO SCH (09:40)
--- NOTE | 2017-12-12 11:18 | DS ---
[facility] Detox Discharge Summary Admission Date: 12/08/17 Discharge Date: 12/12/17 - History Present History: Alcohol Dependence, Cocaine Dependence Pertinent Past History: Alcohol related seizure disorder - Physical Exam Results Vital Signs: Vital Signs Temperature 97.3 F L 12/12/17 06:27 Pulse Rate 71 12/12/17 06:27 Respiratory Rate 18 12/12/17 06:27 Blood Pressure 101/61 12/12/17 06:27 O2 Sat by Pulse Oximetry (%) Pertinent Admission Physical Exam Findings: Withdrawal symptoms Laboratory Tests 12/08/17 12/09/17 12/09/17 23:10 07:00 07:00 WBC 9.3 RBC 4.46 Hgb 13.8 Hct 41.3 MCV 92.6 MCH 30.9 MCHC 33.4 RDW 13.6 Plt Count 312 MPV 7.6 Sodium 143 Potassium 4.4 Chloride 109 H Carbon Dioxide 29 Anion Gap 5 L BUN 15 Creatinine 0.9 Creat Clearance w eGFR > 60 Random Glucose 87 Calcium 8.4 L Total Bilirubin 0.3 AST 14 L ALT 16 Alkaline Phosphatase 66 Total Protein 5.8 L Albumin 2.9 L Urine Color Rosey Urine Appearance Turbid Urine pH 5.0 D Ur Specific [place] 1.028 Urine Protein 1+ H Urine Glucose (UA) Negative Urine Ketones Trace H Urine Blood Negative Urine Nitrite Negative Urine Bilirubin Negative Urine Urobilinogen Negative Ur Leukocyte Esterase Negative Urine WBC (Auto) 4 Urine RBC (Auto) 1 Ur Epithelial Cells Rare Urine Mucus Many RPR Titer 12/09/17 07:00 WBC RBC Hgb Hct MCV MCH MCHC RDW Plt Count MPV Sodium Potassium Chloride Carbon Dioxide Anion Gap BUN Creatinine Creat Clearance w eGFR Random Glucose Calcium Total Bilirubin AST ALT Alkaline Phosphatase Total Protein Albumin Urine Color Urine Appearance Urine pH Ur Specific [place] Urine Protein Urine Glucose (UA) Urine Ketones Urine Blood Urine Nitrite Urine Bilirubin Urine Urobilinogen Ur Leukocyte Esterase Urine WBC (Auto) Urine RBC (Auto) Ur Epithelial Cells Urine Mucus RPR Titer Nonreactive Labs reviewed: UA 1+ protein - Treatment Hospital Course: Detox Protocol Followed, Detoxed Safely, Responded well, Discharged Condition Good - Medication Discharge Medications: Ambulatory Orders NK [No Known Home Medication] 03/11/17 - Diagnosis (1) Alcohol dependence with uncomplicated withdrawal Status: Acute (2) Cocaine dependence Status: Chronic Qualifiers: Substance use status: uncomplicated Qualified Code(s): F14.20 - Cocaine dependence, uncomplicated (3) Nicotine dependence Status: Chronic Qualifiers: Nicotine product type: cigarettes Substance use status: in withdrawal Qualified Code(s): F17.213 - Nicotine dependence, cigarettes, with withdrawal (4) Insomnia Status: Acute (5) Alcohol related seizure Status: Chronic (6) Proteinuria Status: Acute - AMA Did Patient Leave Against Medical Advice: No (F/U with your PCP within 1-2 weeks and for abnormal lab)
== END 2017-12-12 09:50 | disposition home or self-care (01) | DRG 897 ==
LOC: YASAS 12:54 → Y3N 16:09
PROC: HZ2ZZZZ Detoxification Services for Substance Abuse Treatment (ICD-10-PCS; principal; 2017-12-08)
DX: F10.230 Alcohol dependence with withdrawal, uncomplicated (principal); F14.20 Cocaine dependence, uncomplicated; F31.81 Bipolar II disorder; G40.509 Epileptic seizures related to external causes, not intractable, without status epilepticus; F17.213 Nicotine dependence, cigarettes, with withdrawal; F41.9 Anxiety disorder, unspecified; G47.00 Insomnia, unspecified; R80.9 Proteinuria, unspecified
CPT/HCPCS: 36415; 80053; 81003; 81015; 85027; 86593; 90688; 93005; 93010; G0008

== ENCOUNTER 2018-07-19 18:00 | Inpatient (IN) | payer OTHER ==
[2018-07-19 18:45] VITALS: BMI 25.1
--- NOTE | 2018-07-19 20:32 | HP ---
CIWA Score Nausea/Vomitin-No Nausea/No Vomiting Muscle Tremors: 2 Anxiety: 2 Agitation: 0-Normal Activity Paroxysmal Sweats: 2 Orientation: 0-Oriented Tacttile Disturbances: 0-None Auditory Disturbances: 0-None Visual Disturbances: 0-None Headache: 3-Moderate CIWA-Ar Total Score: 9 - Admission Criteria [facility]ASAS Guidelines: Admission for Medically Managed Detox: Requires at least one of the followin. CIWA greater than 12 2. Seizures within the past 24 hours 3. Delirium tremens within the past 24 hours 4. Hallucinations within the past 24 hours 5. Acute intervention needed for co occurring medical disorder 6. Acute intervention needed for co occurring psychiatric disorder 7. Severe withdrawal that cannot be handled at a lower level of care (continued vomiting, continued diarrhea, abnormal vital signs) requiring intravenous medication and/or fluids 8. Patient presents the following: Seizures, delirium tremens or hallucinations in the past 12 hours Admission Criteria Met: Admission criteria met Admission ROS S - HPI Chief Complaint: alcohol withdrawal symptom Allergies/Adverse Reactions: Allergies Allergy/AdvReac Type Severity Reaction Status Date / Time No Known Allergies Allergy Verified 12/08/17 15:09 History of Present Illness: Patient is a 48 yo male with hx of nicotine, cocaine and alcohol dependence is here seeking detox. 1.5 years sobriety relapse one year ago, last detox [facility] November 2017. Reports hx of ETOH blackout with last episode three night ago, remote hx of seizure, ETOH related falls with last episode two days ago. Denies any significant medical hx. Reports hx of bipolar d/o, no treatment at this time. Exam Limitations: No Limitations - Ebola screening Have you traveled outside of the country in the last 21 days: No (N) Have you had contact with anyone from an Ebola affected area: No Do you have a fever: No - Review of Systems Constitutional: Chills, Night Sweats, Changes in sleep, Unintentional Wgt. Loss EENT: reports: No Symptoms Reported Respiratory: reports: No Symptoms reported Cardiac: reports: No Symptoms Reported GI: reports: No Symptoms Reported : reports: No Symptoms Reported Musculoskeletal: reports: No Symptoms Reported Integumentary: reports: Sweating, Other (lesion on left lower extremity from fall) Neuro: reports: See HPI, Headache Hematology: reports: No Symptoms Reported Psychiatric: reports: Orientated x3, Anxious Other Systems: Reviewed and Negative Patient History - Patient Medical History Hx Anemia: No Hx Asthma: No Hx Chronic Obstructive Pulmonary Disease (COPD): No Hx Cancer: No Hx Cardiac Disorders: No Hx Congestive Heart Failure: No Hx Hypertension: No Hx Hypercholesterolemia: No Hx Pacemaker: No HX Cerebrovascular Accident: No Hx Seizures: Yes (ETOH R/T X 4 2015) Hx Dementia: No Hx Diabetes: No Hx Gastrointestinal Disorders: No Hx Liver Disease: No Hx Genitourinary Disorders: No Hx Sexually Transmitted Disorders: No Hx Renal Disease (ESRD): No Hx Thyroid Disease: No Hx Human Immunodeficiency Virus (HIV): No Hx Hepatitis C: No Hx Depression: Yes Hx Suicide Attempt: No Hx Bipolar Disorder: Yes Hx Schizophrenia: No - Patient Surgical History Past Surgical History: Yes Hx Neurologic Surgery: No Hx Cataract Extraction: No Hx Cardiac Surgery: No Hx Lung Surgery: No Hx Breast Surgery: No Hx Breast Biopsy: No Hx Abdominal Surgery: No Hx Appendectomy: No Hx Cholecystectomy: No Hx Genitourinary Surgery: No Hx Section: No Hx Orthopedic Surgery: Yes (LT.ANKLE 2009) Anesthesia Reaction: No - PPD History Previous Implant?: Yes Documented Results: Negative w/proof Date: 03/14/17 Results: 0 mm PPD to be Administered?: Yes - Smoking Cessation Smoking history: Current every day smoker Have you smoked in the past 12 months: Yes Aproximately how many cigarettes per day: 20 Cigars Per Day: 0 Hx Chewing Tobacco Use: No Initiated information on smoking cessation: Yes 'Breaking Loose' booklet given: 07/19/18 - Substance & Tx. History Hx Alcohol Use: Yes Hx Substance Use: Yes Substance Use Type: Alcohol, Cocaine Hx Substance Use Treatment: Yes (Last detox [facility] November 2017) - Substances abused Alcohol Substance route: Oral Frequency: Daily Amount used: 2pts of Vodka and 13beers (24oz) Age of first use: 16 Date of last use: 07/19/18 Cocaine Substance route: Inhalation Frequency: 3-6 times per week Amount used: 3grams Age of first use: 17 Date of last use: 07/17/18 Family Disease History - Family Disease History Family History: Denies Admission Physical Exam BHS - Vital Signs Vital Signs: Vital Signs - 24 hr 07/19/18 18:37 Temperature 98.9 F Pulse Rate 102 H Respiratory 16 Rate Blood Pressure 114/75 - Physical General Appearance: Yes: Disheveled, Alcohol on Breath, Thin, Irritable, Sweating, Anxious HEENTM: Yes: EOMI, Hearing grossly Normal, Normal ENT Inspection, Normocephalic , Normal Voice, REYNA, Pharynx Normal, Tm's normal, Other (facial flushing) Respiratory: Yes: Chest Non-Tender, Lungs Clear, Normal Breath Sounds, No Respiratory Distress, No Accessory Muscle Use Neck: Yes: Within Normal Limits Breast: Yes: Breast Exam Deferred Cardiology: Yes: Regular Rhythm, Regular Rate Abdominal: Yes: Normal Bowel Sounds, Non Tender, Flat, Soft Genitourinary: Yes: Within Normal Limits Back: Yes: Normal Inspection Musculoskeletal: Yes: full range of Motion, Gait Steady, Pelvis Stable Extremities: Yes: Normal Capillary Refill, Normal Inspection, Normal Range of Motion, Non-Tender, Other (healing lesion on left lower extremity) Neurological: Yes: 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, Fully Oriented, Alert, Motor Strength 5/5, Normal Mood/Affect, Normal Response Integumentary: Yes: Normal Color, Warm, Diaphoresis Lymphatic: Yes: Within Normal Limits - Diagnostic (1) Alcohol dependence with uncomplicated withdrawal Current Visit: Yes Status: Acute (2) Cocaine dependence Current Visit: Yes Status: Chronic Qualifiers: Substance use status: uncomplicated Qualified Code(s): F14.20 - Cocaine dependence, uncomplicated (3) Nicotine dependence Current Visit: Yes Status: Chronic Qualifiers: Nicotine product type: cigarettes Substance use status: in withdrawal Qualified Code(s): F17.213 - Nicotine dependence, cigarettes, with withdrawal Cleared for Admission [facility] - Detox or Rehab [facility] Level of Care: Medically Managed Detox Regimen/Protocol: Librium Breathalyzer - Breathalyzer Breathalyzer: 0.48 Urine Drug Screen - Test Device Lot number: [id number] Expiration date: 02/19/20 - Control Is test valid?: Yes - Results Drug screen NEGATIVE: Yes Inpatient Rehab Admission - Rehab Decision to Admit Inpatient rehab admission?: No
[2018-07-19] MEDS ORDERED: chlordiazePOXIDE HCL 25 MG CAPSULE PO PRN (20:33)
[2018-07-19] MEDS ORDERED: MAGNESIUM HYDROX 2400MG/30ML ORAL SUSPENSION 30 ML CUP PO PRN (20:52)
[2018-07-19] MEDS ORDERED: MAGNESIUM CITRATE 300 ML BOTTLE PO PRN (20:52)
[2018-07-19] MEDS ORDERED: BISMUTH SUBSALICYLATE 524 MG/30 ML UD PO PRN (20:52)
[2018-07-19] MEDS ORDERED: NICOTINE POLACRILEX 2 MG GUM BUC PRN (20:52)
[2018-07-19] MEDS ORDERED: MAG HYDROX/AL HYDROX/SIMETH 30 ML UNIT-DOSE CUP PO PRN (20:52)
[2018-07-19] MEDS ORDERED: ACETAMINOPHEN 325 MG TABLET (FP) PO PRN ×2 (20:52)
[2018-07-19] MEDS ORDERED: ONDANSETRON *ODT* 4 MG TABLET SL PRN (20:52)
[2018-07-19] MEDS ORDERED: MENTHOL/PHENOL 1 EACH UD MM PRN (20:52)
[2018-07-19] MEDS: MELATONIN 5 MG TABLETS PO PRN (22:30)
[2018-07-19] MEDS: chlordiazePOXIDE HCL 25 MG CAPSULE PO SCH (22:30)
[2018-07-19] MEDS: THIAMINE HCL 100 MG TABLET (FP) PO SCH (22:30)
[2018-07-20 00:31] LABS: URINE APPEARANCE CLEAR; URINE BILIRUBIN NEGATIVE (NEGATIVE); URINE COLOR YELLOW; URINE GLUCOSE (UA) NEGATIVE (NEGATIVE); URINE KETONE TRACE (NEGATIVE); URINE LEUK ESTERASE NEGATIVE (NEGATIVE); URINE NITRITE NEGATIVE (NEGATIVE); URINE PROTEIN NEGATIVE (NEGATIVE); URINE UROBILINOGEN 0.2 mg/dL (0.2-1.0)
[2018-07-20] MEDS: chlordiazePOXIDE HCL 25 MG CAPSULE PO SCH ×4 (06:21→22:29)
[2018-07-20 10:15] LABS: HEMATOCRIT 42.9 % (35.4-49); HEMOGLOBIN 14.3 GM/dL (11.7-16.9); MCH 31.5 pg (25.7-33.7); MCHC 33.4 g/dl (32.0-35.9); MEAN CELL VOLUME 94.3 fl (80-96); MEAN PLT VOLUME 7.8 fl (7.5-11.1); PLATELET COUNT 362 K/MM3 (134-434); RBC 4.55 M/mm3 (4.00-5.60); RDW 13.4 % (11.9-15.9); WHITE BLOOD COUNT 8.5 K/mm3 (4.0-10.0)
[2018-07-20 10:25] LABS: ALBUMIN 3.1 g/dl (3.4-5.0); ALK PHOS 71 U/L (45-117); ANION GAP 5 MMOL/L (8-16); BILIRUBIN,TOTAL 0.3 mg/dL (0.2-1); BLOOD UREA NITROGEN 25 mg/dL (7-18); CALCIUM 8.6 mg/dL (8.5-10.1); CHLORIDE 107 mmol/L (98-107); CO2 27 mmol/L (21-32); GLUCOSE,RANDOM 82 mg/dL (74-106); POTASSIUM 4.2 mmol/L (3.5-5.1); SGOT/AST 13 U/L (15-37); SGPT/ALT 24 U/L (13-61); SODIUM 139 mmol/L (136-145); TOT PROT 6.3 g/dl (6.4-8.2)
[2018-07-20] MEDS: NICOTINE 14 MG/24 HOURS TOPICAL PATCH TD SCH (10:25)
[2018-07-20] MEDS: PRENATAL VITAMINS W/ FOLIC ACID TABLET (FP) PO SCH (10:25)
[2018-07-20] MEDS: IBUPROFEN 400 MG TABLET (FP) PO PRN (10:28)
--- NOTE | 2018-07-20 12:56 | EKG ---
Test Reason : Blood Pressure : / mmHG Vent. Rate : 080 BPM Atrial Rate : 080 BPM P-R Int : 160 ms QRS Dur : 078 ms QT Int : 380 ms P-R-T Axes : 065 027 043 degrees QTc Int : 438 ms NORMAL SINUS RHYTHM WITH SINUS ARRHYTHMIA NORMAL ECG WHEN COMPARED WITH ECG OF 08-DEC-2017 17:37, NO SIGNIFICANT CHANGE WAS FOUND Confirmed by ADAIR LOPES, ELBERT ([id number]) on 07/20/2018 12:56:02 PM Referred By: GEORGETTE Confirmed By:ELBERT BORRERO MD
--- NOTE | 2018-07-20 14:02 | PN ---
S CIWA - CIWA Score Nausea/Vomitin-No Nausea/No Vomiting Muscle Tremors: 2 Anxiety: 2 Agitation: 0-Normal Activity Paroxysmal Sweats: 2 Orientation: 0-Oriented Tacttile Disturbances: 1-Very Mild Itch/Numbness Auditory Disturbances: 2-Mild Harshness/Frighten Visual Disturbances: 0-None Headache: 3-Moderate CIWA-Ar Total Score: 12 BHS Progress Note (SOAP) Subjective: Sweating, Tremors, H/A. Objective: PATIENT A & O X 3. IN NO ACUTE DISTRESS. 07/20/18 14:00 Vital Signs Temperature 97.9 F 07/20/18 13:18 Pulse Rate 83 07/20/18 13:18 Respiratory Rate 18 07/20/18 13:18 Blood Pressure 124/71 07/20/18 13:18 O2 Sat by Pulse Oximetry (%) Laboratory Tests 07/19/18 07/20/18 07/20/18 23:10 07:00 07:00 WBC 8.5 RBC 4.55 Hgb 14.3 Hct 42.9 MCV 94.3 MCH 31.5 MCHC 33.4 RDW 13.4 Plt Count 362 MPV 7.8 Sodium 139 Potassium 4.2 Chloride 107 Carbon Dioxide 27 Anion Gap 5 L BUN 25 H Creatinine 1.0 Creat Clearance w eGFR 79.42 Random Glucose 82 Calcium 8.6 Total Bilirubin 0.3 AST 13 L ALT 24 Alkaline Phosphatase 71 Total Protein 6.3 L Albumin 3.1 L Urine Color Yellow Urine Appearance Clear Urine pH 5.0 Ur Specific [place] 1.017 Urine Protein Negative Urine Glucose (UA) Negative Urine Ketones Trace H Urine Blood Negative Urine Nitrite Negative Urine Bilirubin Negative Urine Urobilinogen 0.2 Ur Leukocyte Esterase Negative LABS NOTED. RPR RESULT PENDING. 07/20/18 14:01 Assessment: 07/20/18 14:01 WITHDRAWAL SYMPTOMS. Plan: CONTINUE DETOX. INCREASE DAILY PO FLUID / WATER INTAKE.
[2018-07-20] MEDS: MELATONIN 5 MG TABLETS PO PRN (22:29)
[2018-07-20] MEDS: THIAMINE HCL 100 MG TABLET (FP) PO SCH (22:29)
[2018-07-21] MEDS: chlordiazePOXIDE HCL 25 MG CAPSULE PO SCH ×3 (05:39→17:48)
[2018-07-21] MEDS: PRENATAL VITAMINS W/ FOLIC ACID TABLET (FP) PO SCH (10:26)
[2018-07-21] MEDS: NICOTINE 14 MG/24 HOURS TOPICAL PATCH TD SCH (10:26)
--- NOTE | 2018-07-21 15:17 | PN ---
S CIWA - CIWA Score Nausea/Vomitin-No Nausea/No Vomiting Muscle Tremors: 3 Anxiety: 2 Agitation: 0-Normal Activity Paroxysmal Sweats: 3 Orientation: 0-Oriented Tacttile Disturbances: 0-None Auditory Disturbances: 1-Very Mild Visual Disturbances: 2-Mild Sensitivity Headache: 2-Mild CIWA-Ar Total Score: 13 BHS Progress Note (SOAP) Subjective: Sweating, Tremors, Interrupted Sleep, H/A. Objective: PATIENT A & O X 3. IN NO ACUTE DISTRESS. 07/21/18 15:16 Vital Signs Temperature 98.1 F 07/21/18 14:00 Pulse Rate 72 07/21/18 14:00 Respiratory Rate 19 07/21/18 14:00 Blood Pressure 106/66 07/21/18 14:00 O2 Sat by Pulse Oximetry (%) Laboratory Tests 07/19/18 07/20/18 07/20/18 23:10 07:00 07:00 WBC 8.5 RBC 4.55 Hgb 14.3 Hct 42.9 MCV 94.3 MCH 31.5 MCHC 33.4 RDW 13.4 Plt Count 362 MPV 7.8 Sodium 139 Potassium 4.2 Chloride 107 Carbon Dioxide 27 Anion Gap 5 L BUN 25 H Creatinine 1.0 Creat Clearance w eGFR 79.42 Random Glucose 82 Calcium 8.6 Total Bilirubin 0.3 AST 13 L ALT 24 Alkaline Phosphatase 71 Total Protein 6.3 L Albumin 3.1 L Urine Color Yellow Urine Appearance Clear Urine pH 5.0 Ur Specific [place] 1.017 Urine Protein Negative Urine Glucose (UA) Negative Urine Ketones Trace H Urine Blood Negative Urine Nitrite Negative Urine Bilirubin Negative Urine Urobilinogen 0.2 Ur Leukocyte Esterase Negative RPR Titer 07/20/18 07:00 WBC RBC Hgb Hct MCV MCH MCHC RDW Plt Count MPV Sodium Potassium Chloride Carbon Dioxide Anion Gap BUN Creatinine Creat Clearance w eGFR Random Glucose Calcium Total Bilirubin AST ALT Alkaline Phosphatase Total Protein Albumin Urine Color Urine Appearance Urine pH Ur Specific [place] Urine Protein Urine Glucose (UA) Urine Ketones Urine Blood Urine Nitrite Urine Bilirubin Urine Urobilinogen Ur Leukocyte Esterase RPR Titer Nonreactive LABS NOTED. Assessment: 07/21/18 15:17 WITHDRAWAL SYMPTOMS. Plan: CONTINUE DETOX. INCREASE DAILY PO FLUID / WATER INTAKE.
[2018-07-21] MEDS: chlordiazePOXIDE HCL 10 MG CAPSULE PO SCH (22:25)
[2018-07-21] MEDS: THIAMINE HCL 100 MG TABLET (FP) PO SCH (22:25)
[2018-07-21] MEDS: MELATONIN 5 MG TABLETS PO PRN (22:25)
[2018-07-21] MEDS ORDERED: chlordiazePOXIDE HCL 10 MG CAPSULE PO PRN (23:00)
[2018-07-22] MEDS: chlordiazePOXIDE HCL 10 MG CAPSULE PO SCH ×4 (06:35→22:17)
[2018-07-22] MEDS: NICOTINE 14 MG/24 HOURS TOPICAL PATCH TD SCH (10:05)
[2018-07-22] MEDS: PRENATAL VITAMINS W/ FOLIC ACID TABLET (FP) PO SCH (10:07)
[2018-07-22] MEDS: IBUPROFEN 400 MG TABLET (FP) PO PRN (10:09)
--- NOTE | 2018-07-22 14:53 | PN ---
S CIWA - CIWA Score Nausea/Vomitin-No Nausea/No Vomiting Muscle Tremors: 2 Anxiety: 3 Agitation: 1-Slight > Activity Paroxysmal Sweats: 3 Orientation: 0-Oriented Tacttile Disturbances: 2-Mild Itch/Numbness/Burn Auditory Disturbances: 0-None Visual Disturbances: 1-Very Mild Sensitivity Headache: 0-None Present CIWA-Ar Total Score: 12 BHS Progress Note (SOAP) Subjective: Sweating, Tremors, Interrupted Sleep. Objective: PATIENT A & O X 3, OBSERVED AMBULATING ON UNIT UNASSISTED. IN NO ACUTE DISTRESS. 07/22/18 14:50 Vital Signs Temperature 97.3 F L 07/22/18 14:19 Pulse Rate 79 07/22/18 14: Respiratory Rate 20 07/22/18 14: Blood Pressure 96/67 07/22/18 14: O2 Sat by Pulse Oximetry (%) Laboratory Tests 07/19/18 07/20/18 07/20/18 23:10 07:00 07:00 WBC 8.5 RBC 4.55 Hgb 14.3 Hct 42.9 MCV 94.3 MCH 31.5 MCHC 33.4 RDW 13.4 Plt Count 362 MPV 7.8 Sodium 139 Potassium 4.2 Chloride 107 Carbon Dioxide 27 Anion Gap 5 L BUN 25 H Creatinine 1.0 Creat Clearance w eGFR 79.42 Random Glucose 82 Calcium 8.6 Total Bilirubin 0.3 AST 13 L ALT 24 Alkaline Phosphatase 71 Total Protein 6.3 L Albumin 3.1 L Urine Color Yellow Urine Appearance Clear Urine pH 5.0 Ur Specific [place] 1.017 Urine Protein Negative Urine Glucose (UA) Negative Urine Ketones Trace H Urine Blood Negative Urine Nitrite Negative Urine Bilirubin Negative Urine Urobilinogen 0.2 Ur Leukocyte Esterase Negative RPR Titer 07/20/18 07:00 WBC RBC Hgb Hct MCV MCH MCHC RDW Plt Count MPV Sodium Potassium Chloride Carbon Dioxide Anion Gap BUN Creatinine Creat Clearance w eGFR Random Glucose Calcium Total Bilirubin AST ALT Alkaline Phosphatase Total Protein Albumin Urine Color Urine Appearance Urine pH Ur Specific [place] Urine Protein Urine Glucose (UA) Urine Ketones Urine Blood Urine Nitrite Urine Bilirubin Urine Urobilinogen Ur Leukocyte Esterase RPR Titer Nonreactive LABS NOTED. Assessment: 07/22/18 14:51 WITHDRAWAL SYMPTOMS. 07/22/18 14:52 Plan: CONTINUE DETOX. INCREASE DAILY PO FLUID INTAKE.
[2018-07-22] MEDS: THIAMINE HCL 100 MG TABLET (FP) PO SCH (22:17)
[2018-07-22] MEDS: hydrOXYzine PAMOATE 25 MG CAPSULE (FP) PO PRN (22:18)
[2018-07-22] MEDS: MELATONIN 5 MG TABLETS PO PRN (22:18)
[2018-07-22] MEDS: METHOCARBAMOL 500 MG TABLET PO PRN (22:18)
[2018-07-23] MEDS: NICOTINE 14 MG/24 HOURS TOPICAL PATCH TD SCH (10:16)
[2018-07-23] MEDS: PRENATAL VITAMINS W/ FOLIC ACID TABLET (FP) PO SCH (10:16)
[2018-07-23] MEDS: chlordiazePOXIDE HCL 10 MG CAPSULE PO SCH ×2 (10:16→22:14)
--- NOTE | 2018-07-23 12:29 | PN ---
BHS CIWA - CIWA Score Nausea/Vomitin-No Nausea/No Vomiting Muscle Tremors: 2 Anxiety: 0-No Anxiety, at Ease Agitation: 0-Normal Activity Paroxysmal Sweats: 2 Orientation: 0-Oriented Tacttile Disturbances: 0-None Auditory Disturbances: 0-None Visual Disturbances: 0-None Headache: 2-Mild CIWA-Ar Total Score: 6 BHS Progress Note (SOAP) Subjective: c/o mild sweats/headache Objective: 07/23/18 12:27 Vital Signs 07/23/18 07/23/18 07/23/18 06:03 06:30 09:48 Temperature 96.8 F L 98.5 F Pulse Rate 71 70 Respiratory 18 18 18 Rate Blood Pressure 97/62 101/68 Vital signs reviewed Assessment: 07/23/18 12:27 AOX3, in no respiratory distress full ROM, withdrawal symptoms persists. 07/23/18 12:28 Plan: Continue detox increase fluids
[2018-07-23] MEDS: THIAMINE HCL 100 MG TABLET (FP) PO SCH (22:14)
[2018-07-23] MEDS: MELATONIN 5 MG TABLETS PO PRN (22:14)
[2018-07-24] MEDS: PRENATAL VITAMINS W/ FOLIC ACID TABLET (FP) PO SCH (10:17)
[2018-07-24] MEDS: NICOTINE 14 MG/24 HOURS TOPICAL PATCH TD SCH (10:18)
--- NOTE | 2018-07-24 15:43 | PN ---
[facility] CIWA - CIWA Score Nausea/Vomitin-No Nausea/No Vomiting Muscle Tremors: None Anxiety: 1-Mildly Anxious Agitation: 0-Normal Activity Paroxysmal Sweats: 2 Orientation: 0-Oriented Tacttile Disturbances: 0-None Auditory Disturbances: 0-None Visual Disturbances: 0-None Headache: 0-None Present CIWA-Ar Total Score: 3 BHS Progress Note (SOAP) Subjective: Sweating Objective: 07/24/18 15:41 Last Vital Signs Temp Pulse Resp BP Pulse Ox 97.7 F 89 18 95/68 07/24/18 14:02 07/24/18 14:02 07/24/18 14:02 07/24/18 14:02 Laboratory Tests 07/19/18 07/20/18 07/20/18 23:10 07:00 07:00 WBC 8.5 RBC 4.55 Hgb 14.3 Hct 42.9 MCV 94.3 MCH 31.5 MCHC 33.4 RDW 13.4 Plt Count 362 MPV 7.8 Sodium 139 Potassium 4.2 Chloride 107 Carbon Dioxide 27 Anion Gap 5 L BUN 25 H Creatinine 1.0 Creat Clearance w eGFR 79.42 Random Glucose 82 Calcium 8.6 Total Bilirubin 0.3 AST 13 L ALT 24 Alkaline Phosphatase 71 Total Protein 6.3 L Albumin 3.1 L Urine Color Yellow Urine Appearance Clear Urine pH 5.0 Ur Specific [place] 1.017 Urine Protein Negative Urine Glucose (UA) Negative Urine Ketones Trace H Urine Blood Negative Urine Nitrite Negative Urine Bilirubin Negative Urine Urobilinogen 0.2 Ur Leukocyte Esterase Negative RPR Titer 07/20/18 07:00 WBC RBC Hgb Hct MCV MCH MCHC RDW Plt Count MPV Sodium Potassium Chloride Carbon Dioxide Anion Gap BUN Creatinine Creat Clearance w eGFR Random Glucose Calcium Total Bilirubin AST ALT Alkaline Phosphatase Total Protein Albumin Urine Color Urine Appearance Urine pH Ur Specific [place] Urine Protein Urine Glucose (UA) Urine Ketones Urine Blood Urine Nitrite Urine Bilirubin Urine Urobilinogen Ur Leukocyte Esterase RPR Titer Nonreactive Labs reviewed: bun 25 Assessment: 07/24/18 15:42 Withdrawal symptoms Noted with azotemia Plan: Continue detox Azotemia: encouraged PO water hydration
[2018-07-24] MEDS: THIAMINE HCL 100 MG TABLET (FP) PO SCH (22:02)
[2018-07-24] MEDS: MELATONIN 5 MG TABLETS PO PRN (22:02)
[2018-07-24] MEDS: METHOCARBAMOL 500 MG TABLET PO PRN (22:04)
[2018-07-24] MEDS: hydrOXYzine PAMOATE 25 MG CAPSULE (FP) PO PRN (22:04)
[2018-07-25 06:09] VITALS: BP 99/76; PULSE 68; TEMP 97.2
--- NOTE | 2018-07-25 08:54 | DS ---
[facility] Detox Discharge Summary Admission Date: 07/19/18 Discharge Date: 07/25/18 - History Present History: Alcohol Dependence, Cannabis Dependence, Cocaine Dependence - Physical Exam Results Vital Signs: Vital Signs Temperature 97.2 F L 07/25/18 06:09 Pulse Rate 68 07/25/18 06:09 Respiratory Rate 18 07/25/18 06:09 Blood Pressure 99/76 07/25/18 06:09 O2 Sat by Pulse Oximetry (%) - Treatment Hospital Course: Detox Protocol Followed, Detoxed Safely, Responded well, Discharged Condition Good, Rehab Referral Accepted - Medication Discharge Medications: Ambulatory Orders NK [No Known Home Medication] 03/11/17 - Diagnosis (1) Alcohol dependence with uncomplicated withdrawal Status: Chronic (2) Benzodiazepine abuse Status: Chronic (3) Depression Status: Acute (4) Insomnia Status: Acute (5) Proteinuria Status: Acute (6) Right ankle swelling Status: Acute (7) Alcohol related seizure Status: Chronic (8) Bipolar II disorder Status: Chronic (9) Cocaine dependence Status: Chronic Qualifiers: Substance use status: uncomplicated Qualified Code(s): F14.20 - Cocaine dependence, uncomplicated (10) Nicotine dependence Status: Chronic Qualifiers: Nicotine product type: cigarettes Substance use status: uncomplicated Qualified Code(s): F17.210 - Nicotine dependence, cigarettes, uncomplicated - AMA Did Patient Leave Against Medical Advice: No (referred to [facility] inpatient rehab)
== END 2018-07-25 08:30 | disposition home or self-care (01) | DRG 897 ==
LOC: YASAS 18:00 → Y6N 21:14
PROVIDERS: ADMIT Surgery; ATTEND Surgery
PROC: HZ2ZZZZ Detoxification Services for Substance Abuse Treatment (ICD-10-PCS; principal; 2018-07-19)
DX: F10.230 Alcohol dependence with withdrawal, uncomplicated (principal); F14.20 Cocaine dependence, uncomplicated; F31.81 Bipolar II disorder; F13.10 Sedative, hypnotic or anxiolytic abuse, uncomplicated; F17.210 Nicotine dependence, cigarettes, uncomplicated; G47.00 Insomnia, unspecified; R80.9 Proteinuria, unspecified; R79.89 Other specified abnormal findings of blood chemistry; M25.471 Effusion, right ankle; Z91.81 History of falling; Z86.69 Personal history of other diseases of the nervous system and sense organs
CPT/HCPCS: 36415; 80053; 81003; 85027; 86593; 93005; 93010

== ENCOUNTER 2018-09-06 15:51 | Inpatient (IN) | payer OTHER ==
[2018-09-06 20:36] VITALS: BMI 25.4
--- NOTE | 2018-09-07 00:30 | HP ---
CIWA Score Nausea/Vomitin-Mild Nausea/No Vomiting Muscle Tremors: 3 Anxiety: 3 Agitation: 4-Moderately Restless Paroxysmal Sweats: 2 Orientation: 0-Oriented Tacttile Disturbances: 0-None Auditory Disturbances: 0-None Visual Disturbances: 0-None Headache: 4-Moderately Severe CIWA-Ar Total Score: 17 - Admission Criteria OASAS Guidelines: Admission for Medically Managed Detox: Requires at least one of the followin. CIWA greater than 12 2. Seizures within the past 24 hours 3. Delirium tremens within the past 24 hours 4. Hallucinations within the past 24 hours 5. Acute intervention needed for co occurring medical disorder 6. Acute intervention needed for co occurring psychiatric disorder 7. Severe withdrawal that cannot be handled at a lower level of care (continued vomiting, continued diarrhea, abnormal vital signs) requiring intravenous medication and/or fluids 8. Admission ROS [facility] Chief Complaint: Alcohol withdrawal symptoms Allergies/Adverse Reactions: Allergies Allergy/AdvReac Type Severity Reaction Status Date / Time No Known Allergies Allergy Verified 09/06/18 20:20 History of Present Illness: 48 years old male with a long history of alcohol dependence (since age 16 years ) is seeking admission to detox. Patient has been in previous detox and reports 2 years of sobriety. He has history of seizures (alcohol related) and depression. He denies suicidal ideation at this time. - Ebola screening Have you traveled outside of the country in the last 21 days: No Have you had contact with anyone from an Ebola affected area: No Do you have a fever: No - Review of Systems Constitutional: Chills, Loss of Appetite, Night Sweats, Changes in sleep EENT: reports: No Symptoms Reported Respiratory: reports: No Symptoms reported Cardiac: reports: No Symptoms Reported GI: reports: Nausea, Poor Appetite, Poor Fluid Intake, Abdominal cramping, Other Musculoskeletal: reports: Back Pain Integumentary: reports: Dryness, Flushing Neuro: reports: Tremors Endocrine: reports: No Symptoms Reported Hematology: reports: No Symptoms Reported Psychiatric: reports: Mood/Affect Appropiate, Orientated x3 Other Systems: Reviewed and Negative Patient History - Patient Medical History Hx Anemia: No Hx Asthma: No Hx Chronic Obstructive Pulmonary Disease (COPD): No Hx Cancer: No Hx Cardiac Disorders: No Hx Congestive Heart Failure: No Hx Hypertension: No Hx Hypercholesterolemia: No Hx Pacemaker: No HX Cerebrovascular Accident: No Hx Seizures: Yes (ETOH R/T X 4 2015) Hx Dementia: No Hx Diabetes: No Hx Gastrointestinal Disorders: No Hx Liver Disease: No Hx Genitourinary Disorders: No Hx Sexually Transmitted Disorders: No Hx Renal Disease (ESRD): No Hx Thyroid Disease: No Hx Human Immunodeficiency Virus (HIV): No Hx Hepatitis C: No Hx Depression: Yes (Not on medication) Hx Suicide Attempt: No Hx Bipolar Disorder: Yes (Not on medication) Hx Schizophrenia: No - Patient Surgical History Past Surgical History: Yes Hx Neurologic Surgery: No Hx Cataract Extraction: No Hx Cardiac Surgery: No Hx Lung Surgery: No Hx Breast Surgery: No Hx Breast Biopsy: No Hx Abdominal Surgery: No Hx Appendectomy: No Hx Cholecystectomy: No Hx Genitourinary Surgery: No Hx Section: No Hx Orthopedic Surgery: Yes (LT.ANKLE 2009) Anesthesia Reaction: No - PPD History Previous Implant?: Yes Documented Results: Negative w/proof Implanted On Prior [facility] Admission?: Yes Date: 07/21/18 Results: 0 mm PPD to be Administered?: No - Reproductive History Patient is a Female of Child Bearing Age (11 -55 yrs old): No (male) - Smoking Cessation Smoking history: Current every day smoker Have you smoked in the past 12 months: Yes Aproximately how many cigarettes per day: 20 Cigars Per Day: 0 Hx Chewing Tobacco Use: No Initiated information on smoking cessation: Yes 'Breaking Loose' booklet given: 09/07/18 - Substance & Tx. History Hx Alcohol Use: Yes Hx Substance Use: Yes Substance Use Type: Alcohol, Cocaine Hx Substance Use Treatment: Yes - Substances abused Alcohol Substance route: Oral Frequency: Daily Amount used: 2pts of Vodka and 10 beers (24oz) Age of first use: 16 Date of last use: 09/06/18 Cocaine Substance route: Inhalation Frequency: 3-6 times per week Amount used: 3grams Age of first use: 16 Date of last use: 09/05/18 Family Disease History - Family Disease History Family History: Denies Admission Physical Exam [facility] - Vital Signs Vital Signs: Vital Signs - 24 hr 09/06/18 20:19 Temperature 97.7 F Pulse Rate 87 Respiratory 16 Rate Blood Pressure 141/86 Cleared for Admission S - Detox or Rehab S Level of Care: Medically Managed Detox Regimen/Protocol: Librium Breathalyzer - Breathalyzer Breathalyzer: 0 Urine Drug Screen - Test Device Lot number: [id number] Expiration date: 05/19/20 - Control Is test valid?: Yes - Results Drug screen NEGATIVE: No Urine drug screen results: JOSE ALFREDO-Cocaine, BZO-Benzodiazepines Inpatient Rehab Admission - Rehab Decision to Admit Inpatient rehab admission?: No
[2018-09-07] MEDS ORDERED: NICOTINE POLACRILEX 2 MG GUM BUC PRN (00:50)
[2018-09-07] MEDS ORDERED: ACETAMINOPHEN 325 MG TABLET (FP) PO PRN ×2 (00:50)
[2018-09-07] MEDS ORDERED: chlordiazePOXIDE HCL 25 MG CAPSULE PO PRN (00:50)
[2018-09-07] MEDS ORDERED: MAGNESIUM HYDROX 2400MG/30ML ORAL SUSPENSION 30 ML CUP PO PRN (00:50)
[2018-09-07] MEDS ORDERED: MAG HYDROX/AL HYDROX/SIMETH 30 ML UNIT-DOSE CUP PO PRN (00:50)
[2018-09-07] MEDS ORDERED: MENTHOL/PHENOL 1 EACH UD MM PRN (00:50)
[2018-09-07] MEDS ORDERED: hydrOXYzine PAMOATE 25 MG CAPSULE (FP) PO PRN (00:50)
[2018-09-07] MEDS ORDERED: BISMUTH SUBSALICYLATE 524 MG/30 ML UD PO PRN (00:50)
[2018-09-07] MEDS ORDERED: MAGNESIUM CITRATE 300 ML BOTTLE PO PRN (00:50)
[2018-09-07] MEDS: IBUPROFEN 400 MG TABLET (FP) PO PRN (01:16)
[2018-09-07] MEDS: chlordiazePOXIDE HCL 25 MG CAPSULE PO SCH ×4 (05:19→22:27)
[2018-09-07] MEDS: PRENATAL VITAMINS W/ FOLIC ACID TABLET (FP) PO SCH (10:22)
[2018-09-07] MEDS: NICOTINE 21 MG/24 HOURS TOPICAL PATCH TD SCH (10:23)
--- NOTE | 2018-09-07 10:41 | CONSULT ---
[facility] Psychiatric Consult - Data Date of interview: 09/07/18 Admission source: [facility] Identifying data: This is one of multiple admissions to [facility] for this 48 y/ o male self-referred for detoxification treatment (alcohol + cocaine dependence). Examined at [address] [place] [address]. Patient is single without children, domiciled , unemployed and evasive about his means of support (records indicate that he gets SSI benefits). Substance Abuse History: Discussed in this interview. Patient aknowledges alcohol + cocaine abuse. Details in current [facility] report as follows : Smoking history: Current every day smoker. Have you smoked in the past 12 months: Yes. Aproximately how many cigarettes per day: 20. Cigars Per Day: 0. Hx Chewing Tobacco Use: No. Initiated information on smoking cessation: Yes. 'Breaking Loose' booklet given: 09/07/18. - Substance & Tx. History. Hx Alcohol Use: Yes. Hx Substance Use: Yes. Substance Use Type: Alcohol, Cocaine. Hx Substance Use Treatment: Yes. - Substances abused. Alcohol. Substance route: Oral. Frequency: Daily. Amount used: 2pts of Vodka and 10 beers (24oz) . Age of first use: 16. Date of last use: 09/06/18. Cocaine. Substance route: Inhalation. Frequency: 3-6 times per week. Amount used: 3grams. Age of first use: 16. Date of last use: 09/05/18 Medical History: Medical profile is remarkable for a history of orthosurgery in 2009 for fracture of left ankle (hardware in situ). Patient walks with a limp. Psychiatric History: Patient is an irritable and guarded historian. Mr Epperson admits to a long standing history of psychiatric illness. Onset at age 14. He has been diagnosed with Bipolar Disorder. Treated in the past with valproate, buspirone, duloxetine and other psychotropic medications throughout the years. Patient endorses a history of " a few " psychiatric hospitalizations at facilities in [place] and [facility] in [facility]. Admits to chronic non- adherence to medications + OPD care. " I have not taken these medications for years and I don't want to restart now." Patient denies history of suicide attempts. Physical/Sexual Abuse/Trauma History: Not discussed. Patient declines. Additional Comment: Urine drug screen results: JOSE ALFREDO-Cocaine, BZO- Benzodiazepines. Noted. Mental Status Exam - Mental Status Exam Alert and Oriented to: Time, Place, Person Cognitive Function: Good Patient Appearance: Unkempt, Disheveled Mood: Nervous, Withdrawn, Irritable Affect: Mood Congruent, Labile Patient Behavior: Fatigued, Uncooperative, Guarded Speech Pattern: Clear Voice Loudness: Normal Thought Process: Goal Oriented Thought Disorder: Not Present Hallucinations: Denies Suicidal Ideation: Denies Homicidal Ideation: Denies Insight/Judgement: Poor Sleep: Well Appetite: Good Muscle strength/Tone: Normal (no complaint of stiffness or hypotonicity) Gait/Station: Other Psychiatric Findings - Problem List ([place] 1, 2,3) (1) Alcohol dependence with uncomplicated withdrawal Current Visit: Yes Status: Acute (2) Cocaine dependence Current Visit: Yes Status: Chronic Qualifiers: Substance use status: uncomplicated Qualified Code(s): F14.20 - Cocaine dependence, uncomplicated (3) Nicotine dependence Current Visit: Yes Status: Chronic Qualifiers: Nicotine product type: cigarettes Substance use status: uncomplicated Qualified Code(s): F17.210 - Nicotine dependence, cigarettes, uncomplicated (4) Substance induced mood disorder Current Visit: Yes Status: Chronic (5) History of bipolar disorder Current Visit: Yes Status: Chronic (6) Non-compliance Current Visit: Yes Status: Chronic - Initial Treatment Plan Initial Treatment Plan: Records at [facility] : reviewed. Psychoeducation. Sleep hygiene. AA meetings. Patient verbalizes no interest in relapse prevention (MAT) . Observation.
--- NOTE | 2018-09-07 14:32 | PN ---
[facility] CIWA - CIWA Score Nausea/Vomitin-Mild Nausea/No Vomiting Muscle Tremors: 1-None Visible, but [place] Anxiety: 1-Mildly Anxious Paroxysmal Sweats: No Perspiration Orientation: 0-Oriented Tacttile Disturbances: 0-None Auditory Disturbances: 0-None Visual Disturbances: 0-None Headache: 1-Very Mild BHS Progress Note (SOAP) Subjective: here for alcohol detox. , pt states he is fine- sweating a little bit O: Vital Signs - 24 hr 09/06/18 09/07/18 09/07/18 20:19 01:15 03:30 Temperature 97.7 F 97.1 F L Pulse Rate 87 61 Respiratory 16 18 18 Rate Blood Pressure 141/86 120/76 09/07/18 09/07/18 09/07/18 06:25 06:30 09:14 Temperature 97.5 F L 97.1 F L Pulse Rate 62 63 Respiratory 18 18 18 Rate Blood Pressure 101/58 L 92/59 L 09/07/18 13:32 Temperature 97.3 F L Pulse Rate 75 Respiratory 18 Rate Blood Pressure 96/61 a/p: continue alcohol detox protocol. Pt stable
[2018-09-07] MEDS: THIAMINE HCL 100 MG TABLET (FP) PO SCH (22:27)
[2018-09-07] MEDS: METHOCARBAMOL 500 MG TABLET PO PRN (22:28)
[2018-09-07] MEDS: MELATONIN 5 MG TABLETS PO PRN (22:28)
[2018-09-08] MEDS: chlordiazePOXIDE HCL 25 MG CAPSULE PO SCH ×4 (04:18→22:34)
[2018-09-08 09:43] LABS: HEMATOCRIT 42.3 % (35.4-49); HEMOGLOBIN 14.2 GM/dL (11.7-16.9); MCHC 33.5 g/dl (32.0-35.9); MEAN CELL VOLUME 95.5 fl (80-96); PLATELET COUNT 306 K/MM3 (134-434); RBC 4.43 M/mm3 (4.00-5.60); RDW 14.1 % (11.9-15.9)
[2018-09-08 09:54] LABS: ALBUMIN 3.2 g/dl (3.4-5.0); BILIRUBIN,TOTAL 0.2 mg/dL (0.2-1); BLOOD UREA NITROGEN 19.8 mg/dL (7-18); CREATININE 0.9 mg/dL (0.55-1.3); POTASSIUM 4.5 mmol/L (3.5-5.1); TOT PROT 6.4 g/dl (6.4-8.2)
[2018-09-08] MEDS: PRENATAL VITAMINS W/ FOLIC ACID TABLET (FP) PO SCH (10:12)
[2018-09-08] MEDS: NICOTINE 21 MG/24 HOURS TOPICAL PATCH TD SCH (10:12)
[2018-09-08] MEDS: IBUPROFEN 400 MG TABLET (FP) PO PRN ×2 (10:12→22:35)
--- NOTE | 2018-09-08 13:03 | PN ---
S CIWA - CIWA Score Nausea/Vomitin Muscle Tremors: 2 Anxiety: 2 Agitation: 2 Paroxysmal Sweats: 1-Minimal Palms Moist Orientation: 0-Oriented Tacttile Disturbances: 1-Very Mild Itch/Numbness Auditory Disturbances: 1-Very Mild Visual Disturbances: 0-None Headache: 1-Very Mild CIWA-Ar Total Score: 12 BHS Progress Note (SOAP) Subjective: alert,irritable,anxious,interrupted sleep,tremor Objective: 09/08/18 13:01 Vital Signs Temperature 97.0 F L 09/08/18 09:26 Pulse Rate 74 09/08/18 09:26 Respiratory Rate 18 09/08/18 09:26 Blood Pressure 108/76 09/08/18 09:26 O2 Sat by Pulse Oximetry (%) 09/08/18 09/08/18 07:30 07:30 WBC 7.0 RBC 4.43 Hgb 14.2 Hct 42.3 MCV 95.5 MCHC 33.5 RDW 14.1 Plt Count 306 Sodium 141 Potassium 4.5 Chloride 109 H Carbon Dioxide 26 Anion Gap 6 L BUN 19.8 H Creatinine 0.9 other labs pending Assessment: 09/08/18 13:02 withdrawal symptom Plan: continue detox
[2018-09-08] MEDS: MELATONIN 5 MG TABLETS PO PRN (22:36)
[2018-09-08] MEDS: THIAMINE HCL 100 MG TABLET (FP) PO SCH (22:36)
[2018-09-08] MEDS: METHOCARBAMOL 500 MG TABLET PO PRN (22:36)
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
[2018-09-09] MEDS ORDERED: chlordiazePOXIDE HCL 10 MG CAPSULE PO PRN (05:00)
[2018-09-09] MEDS: CEPHALEXIN MONOHYDRATE 500 MG CAPSULE (UD) PO SCH ×4 (05:22→23:00)
[2018-09-09] MEDS: chlordiazePOXIDE HCL 10 MG CAPSULE PO SCH ×4 (05:22→22:38)
[2018-09-09] MEDS: IBUPROFEN 400 MG TABLET (FP) PO PRN ×2 (05:23→22:50)
[2018-09-09] MEDS: NICOTINE 21 MG/24 HOURS TOPICAL PATCH TD SCH (10:28)
[2018-09-09] MEDS: BACITRACIN 15 GM TUBE TOPICAL OINTMENT TP SCH (10:28)
[2018-09-09] MEDS: PRENATAL VITAMINS W/ FOLIC ACID TABLET (FP) PO SCH (10:29)
--- NOTE | 2018-09-09 12:01 | PN ---
S CIWA - CIWA Score Nausea/Vomitin Muscle Tremors: 2 Anxiety: 2 Agitation: 2 Paroxysmal Sweats: No Perspiration Orientation: 0-Oriented Tacttile Disturbances: 1-Very Mild Itch/Numbness Auditory Disturbances: 0-None Visual Disturbances: 0-None Headache: 1-Very Mild CIWA-Ar Total Score: 10 S Progress Note (SOAP) Subjective: alert,irritable,anxious,interrupted sleep,tremor Objective: 09/09/18 11:59 Vital Signs Temperature 97.2 F L 09/09/18 09:32 Pulse Rate 76 09/09/18 09:32 Respiratory Rate 18 09/09/18 09:32 Blood Pressure 93/58 L 09/09/18 09:32 O2 Sat by Pulse Oximetry (%) 09/09/18 12:00 Laboratory Last Values WBC 7.0 K/mm3 (4.0-10.0) 09/08/18 07:30 RBC 4.43 M/mm3 (4.00-5.60) 09/08/18 07:30 Hgb 14.2 GM/dL (11.7-16.9) 09/08/18 07:30 Hct 42.3 % (35.4-49) 09/08/18 07:30 MCV 95.5 fl (80-96) 09/08/18 07:30 MCH 32.0 pg (25.7-33.7) 09/08/18 07:30 MCHC 33.5 g/dl (32.0-35.9) 09/08/18 07:30 RDW 14.1 % (11.9-15.9) 09/08/18 07:30 Plt Count 306 K/MM3 (134-434) 09/08/18 07:30 MPV 8.0 fl (7.5-11.1) 09/08/18 07:30 Sodium 141 mmol/L (136-145) 09/08/18 07:30 Potassium 4.5 mmol/L (3.5-5.1) 09/08/18 07:30 Chloride 109 mmol/L (98-107) H 09/08/18 07:30 Carbon Dioxide 26 mmol/L (21-32) 09/08/18 07:30 Anion Gap 6 MMOL/L (8-16) L 09/08/18 07:30 BUN 19.8 mg/dL (7-18) H 09/08/18 07:30 Creatinine 0.9 mg/dL (0.55-1.3) 09/08/18 07:30 Est GFR (CKD-EPI)AfAm 115.83 09/08/18 07:30 Est GFR (CKD-EPI)NonAf 99.94 09/08/18 07:30 Random Glucose 81 mg/dL (74-106) 09/08/18 07:30 Calcium 9.0 mg/dL (8.5-10.1) 09/08/18 07:30 Total Bilirubin 0.2 mg/dL (0.2-1) 09/08/18 07:30 AST 9 U/L (15-37) L 09/08/18 07:30 ALT 16 U/L (13-61) 09/08/18 07:30 Alkaline Phosphatase 76 U/L (45-117) 09/08/18 07:30 Total Protein 6.4 g/dl (6.4-8.2) 09/08/18 07:30 Albumin 3.2 g/dl (3.4-5.0) L 09/08/18 07:30 RPR Titer Nonreactive (NONREACTIVE) 09/08/18 07:30 Assessment: 09/09/18 12:00 withdrawal symptom Plan: continue detox
[2018-09-09] MEDS: THIAMINE HCL 100 MG TABLET (FP) PO SCH (22:35)
[2018-09-09] MEDS: MELATONIN 5 MG TABLETS PO PRN (22:38)
[2018-09-10] MEDS: chlordiazePOXIDE HCL 10 MG CAPSULE PO SCH ×2 (05:50→17:20)
[2018-09-10] MEDS: IBUPROFEN 400 MG TABLET (FP) PO PRN ×2 (05:50→15:35)
[2018-09-10] MEDS: CEPHALEXIN MONOHYDRATE 500 MG CAPSULE (UD) PO SCH ×4 (05:51→23:54)
--- NOTE | 2018-09-10 09:53 | PN ---
S CIWA - CIWA Score Nausea/Vomitin-No Nausea/No Vomiting Muscle Tremors: 2 Anxiety: 2 Agitation: 1-Slight > Activity Paroxysmal Sweats: 3 Orientation: 0-Oriented Tacttile Disturbances: 0-None Auditory Disturbances: 0-None Visual Disturbances: 0-None Headache: 2-Mild CIWA-Ar Total Score: 10 S Progress Note (SOAP) Subjective: c/o sweats, headache, and anxiety. Objective: 09/10/18 09:52 Vital Signs 09/10/18 09/10/18 09/10/18 03:30 06:25 09:44 Temperature 96.8 F L 98.5 F Pulse Rate 70 78 Respiratory 18 18 18 Rate Blood Pressure 101/61 108/75 Lab Results WBC 7.0 K/mm3 (4.0-10.0) 09/08/18 07:30 RBC 4.43 M/mm3 (4.00-5.60) 09/08/18 07:30 Hgb 14.2 GM/dL (11.7-16.9) 09/08/18 07:30 Hct 42.3 % (35.4-49) 09/08/18 07:30 MCV 95.5 fl (80-96) 09/08/18 07:30 MCHC 33.5 g/dl (32.0-35.9) 09/08/18 07:30 RDW 14.1 % (11.9-15.9) 09/08/18 07:30 Plt Count 306 K/MM3 (134-434) 09/08/18 07:30 Sodium 141 mmol/L (136-145) 09/08/18 07:30 Potassium 4.5 mmol/L (3.5-5.1) 09/08/18 07:30 Chloride 109 mmol/L (98-107) H 09/08/18 07:30 Carbon Dioxide 26 mmol/L (21-32) 09/08/18 07:30 Anion Gap 6 MMOL/L (8-16) L 09/08/18 07:30 BUN 19.8 mg/dL (7-18) H 09/08/18 07:30 Creatinine 0.9 mg/dL (0.55-1.3) 09/08/18 07:30 Random Glucose 81 mg/dL (74-106) 09/08/18 07:30 Calcium 9.0 mg/dL (8.5-10.1) 09/08/18 07:30 Labs noted. Assessment: 09/10/18 09:53 AOX3, in no acute distress. Full rom, ambulates in the unit. withdrawal signs Plan: continue detox.
[2018-09-10] MEDS: PRENATAL VITAMINS W/ FOLIC ACID TABLET (FP) PO SCH (10:21)
[2018-09-10] MEDS: BACITRACIN 15 GM TUBE TOPICAL OINTMENT TP SCH (10:21)
[2018-09-10] MEDS: NICOTINE 21 MG/24 HOURS TOPICAL PATCH TD SCH (10:21)
[2018-09-10] MEDS: MELATONIN 5 MG TABLETS PO PRN (22:37)
[2018-09-10] MEDS: THIAMINE HCL 100 MG TABLET (FP) PO SCH (22:37)
[2018-09-10] MEDS: METHOCARBAMOL 500 MG TABLET PO PRN (22:38)
[2018-09-11] MEDS: chlordiazePOXIDE HCL 10 MG CAPSULE PO SCH (06:21)
[2018-09-11] MEDS: CEPHALEXIN MONOHYDRATE 500 MG CAPSULE (UD) PO SCH ×4 (06:21→23:12)
[2018-09-11] MEDS: IBUPROFEN 400 MG TABLET (FP) PO PRN (06:22)
[2018-09-11] MEDS: PRENATAL VITAMINS W/ FOLIC ACID TABLET (FP) PO SCH (10:24)
[2018-09-11] MEDS: NICOTINE 21 MG/24 HOURS TOPICAL PATCH TD SCH (10:24)
[2018-09-11] MEDS: BACITRACIN 15 GM TUBE TOPICAL OINTMENT TP SCH (10:25)
--- NOTE | 2018-09-11 13:10 | PN ---
S CIWA - CIWA Score Nausea/Vomitin-Mild Nausea/No Vomiting Muscle Tremors: 2 Anxiety: 2 Agitation: 1-Slight > Activity Paroxysmal Sweats: No Perspiration Orientation: 0-Oriented Tacttile Disturbances: 0-None Auditory Disturbances: 0-None Visual Disturbances: 1-Very Mild Sensitivity Headache: 0-None Present CIWA-Ar Total Score: 7 BHS Progress Note (SOAP) Subjective: detox ccompleted but ongoing anxiety and sleepless,shaky Objective: 09/11/18 13:09 Vital Signs - 24 hr 09/10/18 09/10/18 09/10/18 13:43 17:40 22:10 Temperature 98.2 F 97.6 F 97.4 F L Pulse Rate 91 H 86 98 H Respiratory 18 18 18 Rate Blood Pressure 110/64 103/63 107/71 09/11/18 09/11/18 09/11/18 00:30 03:30 06:27 Temperature 96.4 F L Pulse Rate 62 Respiratory 18 18 18 Rate Blood Pressure 100/62 09/11/18 09:17 Temperature 96.7 F L Pulse Rate 75 Respiratory 18 Rate Blood Pressure 99/61 Laboratory Tests 09/08/18 09/08/18 09/08/18 07:30 07:30 07:30 WBC 7.0 RBC 4.43 Hgb 14.2 Hct 42.3 MCV 95.5 MCH 32.0 MCHC 33.5 RDW 14.1 Plt Count 306 MPV 8.0 Sodium 141 Potassium 4.5 Chloride 109 H Carbon Dioxide 26 Anion Gap 6 L BUN 19.8 H Creatinine 0.9 Est GFR (CKD-EPI)AfAm 115.83 Est GFR (CKD-EPI)NonAf 99.94 Random Glucose 81 Calcium 9.0 Total Bilirubin 0.2 AST 9 L ALT 16 Alkaline Phosphatase 76 Total Protein 6.4 Albumin 3.2 L RPR Titer Nonreactive Assessment: 09/11/18 13:10 acute withdrawal Plan: continue observation, jack in am
[2018-09-11] MEDS: THIAMINE HCL 100 MG TABLET (FP) PO SCH (21:56)
[2018-09-11] MEDS: MELATONIN 5 MG TABLETS PO PRN (21:56)
[2018-09-11] MEDS: METHOCARBAMOL 500 MG TABLET PO PRN (21:57)
[2018-09-12] MEDS: CEPHALEXIN MONOHYDRATE 500 MG CAPSULE (UD) PO SCH (05:56)
[2018-09-12 06:11] VITALS: BP 94/68; PULSE 61; TEMP 96.9
[2018-09-12] MEDS: IBUPROFEN 400 MG TABLET (FP) PO PRN (08:59)
[2018-09-12] MEDS: PRENATAL VITAMINS W/ FOLIC ACID TABLET (FP) PO SCH (10:41)
[2018-09-12] MEDS: NICOTINE 21 MG/24 HOURS TOPICAL PATCH TD SCH (10:41)
[2018-09-12] MEDS: BACITRACIN 15 GM TUBE TOPICAL OINTMENT TP SCH (10:41)
--- NOTE | 2018-09-12 22:08 | DS ---
[facility] Detox Discharge Summary Admission Date: 09/07/18 Discharge Date: 09/12/18 - History Present History: Alcohol Dependence, Cocaine Dependence Additional Comments: PATIENT GOING TO [facility] ([place], [place]) FOR AFTERCARE. 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 PATIENT ADVISED TO DO SO SOON POSSIBLE. PATIENT VERBALIZED UNDERSTANDING OF RECOMMENDATION. PATIENT WAS DISCHARGED FROM DETOX UNIT IN STABLE MEDICAL CONDITION. Pertinent Past History: Nicotine Dependence, History Of Seizures (Related To Alcohol Withdrawal), Depression, Bipolar Disorder. - Physical Exam Results Vital Signs: Vital Signs Temperature 96.9 F L 09/12/18 06:11 Pulse Rate 61 09/12/18 06:11 Respiratory Rate 18 09/12/18 06:11 Blood Pressure 94/68 09/12/18 06:11 O2 Sat by Pulse Oximetry (%) Pertinent Admission Physical Exam Findings: WITHDRAWAL SYMPTOMS. Laboratory Tests 09/08/18 09/08/18 09/08/18 07:30 07:30 07:30 WBC 7.0 RBC 4.43 Hgb 14.2 Hct 42.3 MCV 95.5 MCH 32.0 MCHC 33.5 RDW 14.1 Plt Count 306 MPV 8.0 Sodium 141 Potassium 4.5 Chloride 109 H Carbon Dioxide 26 Anion Gap 6 L BUN 19.8 H Creatinine 0.9 Est GFR (CKD-EPI)AfAm 115.83 Est GFR (CKD-EPI)NonAf 99.94 Random Glucose 81 Calcium 9.0 Total Bilirubin 0.2 AST 9 L ALT 16 Alkaline Phosphatase 76 Total Protein 6.4 Albumin 3.2 L RPR Titer Nonreactive LABS NOTED. - Treatment Hospital Course: Detox Protocol Followed, Detoxed Safely, Responded well, Discharged Condition Good Patient has Accepted a Rehab Referral to: PT GOING TO [facility] ([place], [place]) - Medication Discharge Medications: Ambulatory Orders NK [No Known Home Medication] 03/11/17 - Diagnosis (1) Alcohol dependence with uncomplicated withdrawal Status: Acute (2) Cocaine dependence Status: Chronic Qualifiers: Substance use status: uncomplicated Qualified Code(s): F14.20 - Cocaine dependence, uncomplicated (3) Nicotine dependence Status: Chronic Qualifiers: Nicotine product type: cigarettes Substance use status: uncomplicated Qualified Code(s): F17.210 - Nicotine dependence, cigarettes, uncomplicated (4) Non-compliance Status: Chronic (5) Substance induced mood disorder Status: Chronic (6) History of bipolar disorder Status: Chronic (7) Right ankle swelling Status: Acute - AMA Did Patient Leave Against Medical Advice: No
== END 2018-09-12 09:10 | disposition home or self-care (01) | DRG 897 ==
LOC: YASAS 15:51 → Y3N 09-07 00:10
PROVIDERS: ADMIT Surgery; ATTEND Surgery
PROC: HZ2ZZZZ Detoxification Services for Substance Abuse Treatment (ICD-10-PCS; principal; 2018-09-07)
DX: F10.230 Alcohol dependence with withdrawal, uncomplicated (principal); F13.20 Sedative, hypnotic or anxiolytic dependence, uncomplicated; F14.20 Cocaine dependence, uncomplicated; L03.115 Cellulitis of right lower limb; F17.210 Nicotine dependence, cigarettes, uncomplicated; F19.24 Other psychoactive substance dependence with psychoactive substance-induced mood disorder; F31.9 Bipolar disorder, unspecified; Z86.69 Personal history of other diseases of the nervous system and sense organs; Z91.19 Patient's noncompliance with other medical treatment and regimen
CPT/HCPCS: 36415; 80053; 85027; 86593

== ENCOUNTER 2023-07-27 16:57 | Inpatient (IN) | payer OTHER ==
[2023-07-27 18:38] VITALS: BMI 25.7
[2023-07-27] MEDS ORDERED: BISMUTH SUBSALICYLATE 524 MG/30 ML PO PRN (19:01)
[2023-07-27] MEDS ORDERED: NICOTINE POLACRILEX 2 MG GUM BUC PRN (19:01)
[2023-07-27] MEDS ORDERED: LOPERAMIDE HCL 2 MG CAPSULE PO PRN (19:01)
[2023-07-27] MEDS ORDERED: guaiFENesin 600 MG TABLET.ER (FP) PO PRN (19:01)
[2023-07-27] MEDS ORDERED: IBUPROFEN 400 MG TABLET (FP) PO PRN (19:01)
[2023-07-27] MEDS ORDERED: hydrOXYzine PAMOATE 25 MG CAPSULE (FP) PO PRN (19:01)
[2023-07-27] MEDS ORDERED: BENZOCAINE/MENTHOL (CHLORASEPTIC ) LOZENGE MM PRN (19:01)
[2023-07-27] MEDS ORDERED: ONDANSETRON *ODT* 4 MG TABLET SL PRN (19:01)
[2023-07-27] MEDS ORDERED: NICOTINE POLACRILEX 2 MG LOZENGE BC PRN (19:01)
[2023-07-27] MEDS ORDERED: DICYCLOMINE HCL 10 MG CAPSULE PO PRN (19:01)
[2023-07-27] MEDS ORDERED: BENZONATATE 200 MG CAPSULE PO PRN (19:01)
[2023-07-27] MEDS ORDERED: MAGNESIUM HYDROX 2400MG/30ML ORAL SUSPENSION 30 ML CUP PO PRN (19:01)
[2023-07-27] MEDS ORDERED: POLYETHYLENE GLYCOL (HEALTHYLAX) 3350 17 GM PACKET PO PRN (19:01)
[2023-07-27] MEDS: THIAMINE 100 MG TABLET PO SCH (21:19)
[2023-07-27] MEDS: MELATONIN 5 MG TABLETS PO SCH (21:19)
[2023-07-28] MEDS: PRENATAL VITAMINS W/ FOLIC ACID TABLET (FP) PO SCH (10:49)
[2023-07-28] MEDS: diazePAM 5 MG TABLET PO SCH (10:50)
[2023-07-28] MEDS: ACETAMINOPHEN 325 MG TABLET (FP) PO PRN (17:24)
[2023-07-29] MEDS: NICOTINE 21 MG/24 HOURS TOPICAL PATCH TD SCH (15:13)
[2023-07-30] MEDS: MAG HYDROX/AL HYDROX/SIMETH 30 ML UNIT-DOSE CUP PO PRN (02:51)
[2023-07-30] MEDS: diazePAM 5 MG TABLET PO SCH (05:50)
[2023-07-30 09:21] VITALS: RESP 16
[2023-07-30] MEDS: diazePAM 5 MG TABLET PO PRN (10:29)
[2023-07-30] MEDS: METHOCARBAMOL 500 MG TABLET PO PRN (22:10)
[2023-07-31] MEDS: IBUPROFEN 600 MG TABLET (FP) PO PRN (02:53)
[2023-07-31] MEDS: diazePAM 5 MG TABLET PO SCH (06:15)
[2023-07-31 12:41] VITALS: BP 100/63; PULSE 60; TEMP 97.9
[2023-08-01] MEDS ORDERED: diazePAM 5 MG TABLET PO ONE (06:00)
== END 2023-07-31 14:07 | disposition home or self-care (01) | DRG 897 ==
LOC: YASAS 16:57 → Y3N 19:48
PROVIDERS: ADMIT Allergy & Immunology; ATTEND Surgery
PROC: HZ2ZZZZ Detoxification Services for Substance Abuse Treatment (ICD-10-PCS; principal; 2023-07-27)
DX: F10.230 Alcohol dependence with withdrawal, uncomplicated (principal); F14.20 Cocaine dependence, uncomplicated; F17.210 Nicotine dependence, cigarettes, uncomplicated; Z28.310 Unvaccinated for COVID-19; Z56.0 Unemployment, unspecified
CPT/HCPCS: 80305